=== PATIENT | female | born 1955 | race Caucasian/White ===

== ENCOUNTER 2016-09-18 13:10 | Emergency (ER) | payer OTHER, MEDICARE ==
[2016-09-18 13:18] VITALS: TEMP 97.5; O2SAT 90
--- NOTE | 2016-09-18 13:26 | EDPHY ---
H & P Stated Complaint: Slipped on Ice x3. Bruising to left eye. sent by Time Seen by Provider: 09/18/16 13:21 HPI/ROS: CHIEF COMPLAINT: Fall on ice yesterday, facial trauma, left hand trauma HISTORY OF PRESENT ILLNESS: The patient presents to the emergency department for warrant evaluation of a fall on ice yesterday. She struck herself on her face above her left eye and has marked swelling and ecchymosis noted to her forehead and scalp today. The patient reports a moderate headache. She denies acute neck pain but does suffer from chronic neck pain which is not acutely worsened from her fall. She denies acute numbness or weakness. The patient also complains of pain, swelling and slight deformity to her left 5th finger. The patient is on a number of narcotic pain medications for chronic pain. The patient denies abdominal pain, chest pain, acute back pain, numbness, weakness or additional acute complaints. REVIEW OF SYSTEMS: A comprehensive 10 point review of systems is otherwise negative aside from elements mentioned in the history of present illness. Source: Patient Exam Limitations: No limitations - Personal History Current Tetanus Diphtheria and Acellular Pertussis (TDAP): Yes Tetanus Vaccine Date: WITHIN 10 Y - Medical/Surgical History Hx Asthma: No Hx Chronic Respiratory Disease: No Hx Diabetes: No Hx Cardiac Disease: No Hx Renal Disease: No Hx Cirrhosis: No Hx Alcoholism: No Hx HIV/AIDS: No Hx Splenectomy or Spleen Trauma: No Other PMH: RA, Osteoarthritis,. Sjogen's, osteoporosis - Social History Smoking Status: Former smoker - Physical Exam Exam: General Appearance: Alert, no distress Head: Large ecchymotic contusion with soft tissue swelling over left eye Eyes: Pupils equal, round, reactive ENT, Mouth: No hemotympanum, no oral trauma Neck: Nontender, trachea midline Respiratory: No chest wall tender, subcutaneous air, lungs clear bilaterally Cardiovascular: Regular rate and rhythm Abdomen: Abdomen is soft and nontender, pelvis stable Skin: No lacerations, No abrasion Back: No midline T/L/S pain Extremities: Tenderness and bruising noted to the left 5th finger Neurological: A&Ox3, normal motor function, normal sensory exam Constitutional: Initial Vital Signs Temperature (C) 36.4 C 09/18/16 13:14 Heart Rate 103 H 09/18/16 13:14 Blood Pressure 98/64 L 09/18/16 13:14 O2 Sat (%) 90 L 09/18/16 13:14 Allergies/Adverse Reactions: Penicillins Allergy (Severe, Verified 07/01/16 14:11) Anaphylaxis/TROUBLE BREATHING CATS Allergy (Severe, Uncoded 10/10/12 19:18) TROUBLE BREATHING DONNIE NUTS Allergy (Severe, Uncoded 10/10/12 19:18) TROUBLE BREATHING ENVIRONMENTAL Allergy (Uncoded 10/18/12 10:59) Other-Enter Comments Home Medications: Medication Instructions Recorded Gabapentin [Neurontin 300 MG (RX)] 900 mg PO TID 10/14/12 cycloSPORINE 0.05% [Restasis Opht 1 drop EACHEYE BID 10/14/12 Drops(RX)] Promethazine HCl [Phenergan 25mg 25 mg PO Q6 PRN 10/24/13 (RX)] valACYclovir [Valtrex (RX)] 1,000 mg PO DAILY 10/24/13 Esomeprazole Mag Trihydrate 40 mg PO DAILY 03/18/16 [Nexium] Oxycodone HCl [Oxycontin] 40 mg PO TID 03/18/16 Baclofen [Baclofen 10 mg (RX)] 10 mg PO Q8 PRN 03/19/16 Ketamine Nasal Spary 1 sprays EACHNARE DAILY 03/19/16 oxyCODONE IR [Oxycodone Ir (RX)] 10 - 20 mg PO Q4 PRN 03/19/16 Ibuprofen [Motrin (*)] 800 mg PO Q6-8PRN #30 tab 04/02/16 Medical Decision Making - Diagnostics Imaging: CT maxillofacial: Negative for acute fracture, soft tissue swelling noted. Images reported to me by Dr. Mark Venegas. Left hand x-ray: Negative for acute fracture. ED Course/Re-evaluation: The patient presents to the emergency department after mechanical fall. She has a fair amount of soft tissue swelling and bony tenderness over her left eye. CT scan of the maxillofacial bones demonstrated no evidence of an acute fracture. The patient had no complaints of a significant headache. She was noted to be neurologically intact. Additionally, the patient had bruising and swelling noted to her left 5th finger. X-rays of extremity demonstrate no evidence of an obvious fracture. The patient was observed in the emergency department. She remains with a benign abdominal examination, normal neurologic examination and no additional traumatic injury. The patient will be discharged home with customary head injury and musculoskeletal strain after instructions. Differential Diagnosis: Differential diagnosis considered includes intracranial hemorrhage, skull fracture, finger fracture, concussion, contusion Departure - Departure Disposition: Home, Routine, Self-Care Clinical Impression: Hematoma of face, Finger contusion Condition: Good Instructions: Hematoma (ED) Additional Instructions: 1. Ice area of swelling 2. Take Ibuprofen or Motrin 600 mg by mouth three times a day. 3. There is no fracture seen on your CT for scan or x-ray today. Referrals: Brandi Adams MD [Primary Care Provider] - As per Instructions
--- NOTE | 2016-09-18 14:06 | DX ---
Left hand - 3 views dated September 18, 2016 Indication: Trauma. 5th digit pain. Comparison: Left hand series dated December 14, 2009 Findings: The demineralized bones are anatomically aligned. No acute fracture. Joint spaces are pre served. Minimal osteoarthritis of the interphalangeal joints and deformity of the base of the first m etacarpal is unchanged. Impression: Negative. No acute fracture.
[2016-09-18 14:33] VITALS: BP 101/60; PULSE 92; RESP 20
--- NOTE | 2016-09-18 14:34 | CT ---
CT of the Maxillofacial (Without Contrast) Clinical Indications: Trauma. Technique: 1.5 mm contiguous helical axial scanning through the face without contrast. Radiation dose reduction technique was utilized. Comparison: CT head July 01, 2016, CT maxillofacial March 19, 2016. Findings: Inferior maxillary sinus disease is unstable. Surgical changes related to prior dental work with bony reactive changes are also stable. There is no evidence of fracture. Mild sphenoid sinus di sease is present. A large amount of swelling is present over the left orbit and lateral face. Frontal sinuses and ethmoid sinuses are clear. Mastoid air cells are normal. Impression: 1. Soft tissue swelling over the left orbit and lateral face. No evidence of fracture. 2. Unchanged maxillary sinus disease and prior maxillary dental work. Critical results were relayed by Dr. Venegas to Dr. iDamond at 1413 hours on September 18, 2016.
== END 2016-09-18 14:33 | disposition home or self-care (01) ==
DX: S09.93XA Unspecified injury of face, initial encounter (principal); S00.83XA Contusion of other part of head, initial encounter; S60.052A Contusion of left little finger without damage to nail, initial encounter; Z87.891 Personal history of nicotine dependence; W18.09XA Striking against other object with subsequent fall, initial encounter

== ENCOUNTER 2017-01-02 17:56 | Emergency (ER) | payer OTHER, MEDICARE ==
[2017-01-02 18:20] VITALS: TEMP 98.1
--- NOTE | 2017-01-02 20:01 | EDPHY ---
H & P Stated Complaint: Right hill pain and edema from fall. HPI/ROS: Chief complaint: Right hand injury History of present illness: This is a pleasant 61-year-old female who presents to the emergency department for a right hand injury. Earlier today she tripped over her dog while walking and landed onto her right hand. Since then she has had pain and swelling to the inner aspect of the hand. It does make it difficult to move the digits of the hand, specifically the fourth and fifth finger. She denies other associated signs or symptoms including no report of open wounds. No report of paresthesias or abnormal coolness in the finger. She denies trauma to other parts of the body. - Personal History Current Tetanus/Diphtheria Vaccine: Yes Current Tetanus Diphtheria and Acellular Pertussis (TDAP): Yes Tetanus Vaccine Date: WITHIN 10 Y - Medical/Surgical History Hx Asthma: No Hx Chronic Respiratory Disease: No Hx Diabetes: No Hx Cardiac Disease: No Hx Renal Disease: No Hx Cirrhosis: No Hx Alcoholism: No Hx HIV/AIDS: No Hx Splenectomy or Spleen Trauma: No Other PMH: RA, Osteoarthritis,. Sjogen's, osteoporosis - Social History Smoking Status: Former smoker - Physical Exam Exam: General: Alert, nontoxic Skin: Contusion to the medial aspect of the right hand. No open wounds. Musculoskeletal: Tenderness to the medial aspect of the hand. The rest of the hand as well as the wrist including over the snuffbox is nontender. She is moving all digits in the right hand well although there is some pain moving the 4th and 5th finger. She is moving the wrist well. Vascular: Radial pulses 2+. Capillary refill brisk in the right hand. Neurologic: Sensation intact in the right hand. Constitutional: Initial Vital Signs Temperature (C) 36.7 C 01/02/17 18:16 Heart Rate 115 H 01/02/17 18:16 Blood Pressure 109/92 H 01/02/17 18:16 O2 Sat (%) 87 L 01/02/17 18:16 O2 Delivery Mode Room Air Allergies/Adverse Reactions: Penicillins Allergy (Severe, Verified 07/01/16 14:11) Anaphylaxis/TROUBLE BREATHING CATS Allergy (Severe, Uncoded 10/10/12 19:18) TROUBLE BREATHING DONNIE NUTS Allergy (Severe, Uncoded 10/10/12 19:18) TROUBLE BREATHING ENVIRONMENTAL Allergy (Uncoded 10/18/12 10:59) Other-Enter Comments Home Medications: Medication Instructions Recorded Gabapentin [Neurontin 300 MG (RX)] 900 mg PO TID 10/14/12 cycloSPORINE 0.05% [Restasis Opht 1 drop EACHEYE BID 10/14/12 Drops(RX)] Promethazine HCl [Phenergan 25mg 25 mg PO Q6 PRN 10/24/13 (RX)] valACYclovir [Valtrex (RX)] 1,000 mg PO DAILY 10/24/13 Esomeprazole Mag Trihydrate 40 mg PO DAILY 03/18/16 [Nexium] oxyCODONE HCL [Oxycontin] 40 mg PO TID 03/18/16 Baclofen [Baclofen 10 mg (RX)] 10 mg PO Q8 PRN 03/19/16 Ketamine Nasal Spary 1 sprays EACHNARE DAILY 03/19/16 oxyCODONE IR [Oxycodone Ir (RX)] 10 - 20 mg PO Q4 PRN 03/19/16 Ibuprofen [Motrin (*)] 800 mg PO Q6-8PRN #30 tab 04/02/16 Medical Decision Making - Diagnostics Imaging Results: Imaging Impressions Hand X-Ray 01/02/17 18:42 Impression: Acute fracture of the right 5th metacarpal neck, without significant displacement. Imaging: I viewed and interpreted images myself Procedures: Procedure: Splint placement. A ulnar gutter splint was applied. After application of the splint I returned and re-examined the patient. The splint was adequately immobilizing the joint and distal to the splint the patient's circulation and sensation was intact. ED Course/Re-evaluation: Patient seen under the supervision of my primary supervising physician Dr. Marci Islas. Patient presents to the emergency department for a right hand injury. The hand is neurovascularly intact. X-ray confirms a boxer's fracture. By history and physical exam no evidence of trauma to other parts of the body. Patient is splinted. She is discharged home. Home care is discussed. She is asked to follow up with a hand surgeon for recheck next week and referral information is provided. Return precautions are given. Patient voiced understanding and agreement with plan. Differential Diagnosis: Included but not limited to contusion, sprain or strain, bony fracture, joint dislocation Departure - Departure Disposition: Home, Routine, Self-Care Clinical Impression: Closed fracture of 5th metacarpal Qualifiers: Encounter type: initial encounter Metacarpal location: shaft Fracture alignment : nondisplaced Laterality: right Qualified Code(s): S62.356A - Nondisplaced fracture of shaft of fifth metacarpal bone, right hand, initial encounter for closed fracture Condition: Good Instructions: Hand Fracture (ED) Additional Instructions: Follow-up with Hand surgery next week for continued evaluation and care Use [id number] ibuprofen as directed as needed for pain If symptoms worsen or new symptoms develop return to the emergency room for recheck Referrals: Brandi Adams MD [Primary Care Provider] - As per Instructions Hollie Angela MD [Medical Doctor] - As per Instructions
[2017-01-02 20:10] VITALS: BP 119/88; PULSE 104; RESP 16; O2SAT 91
== END 2017-01-02 20:09 | disposition home or self-care (01) ==
DX: S62.366A Nondisplaced fracture of neck of fifth metacarpal bone, right hand, initial encounter for closed fracture (principal); Z87.891 Personal history of nicotine dependence; W01.0XXA Fall on same level from slipping, tripping and stumbling without subsequent striking against object, initial encounter; Y93.01 Activity, walking, marching and hiking

== ENCOUNTER → 2017-02-11 | Outpatient (CLI) | payer OTHER, MEDICARE | LOC: BMCIMAGING 13:35 | PROVIDERS: ATTEND Physician Assistant | DX: S62.366G Nondisplaced fracture of neck of fifth metacarpal bone, right hand, subsequent encounter for fracture with delayed healing (principal) ==

== ENCOUNTER → 2017-02-12 | Outpatient (CLI) | payer OTHER, MEDICARE | LOC: BMCIMAGING 13:45 | PROVIDERS: ATTEND Family Medicine | DX: M79.89 Other specified soft tissue disorders (principal) ==

== ENCOUNTER → 2017-02-27 | Outpatient (CLI) | payer OTHER, MEDICARE | LOC: BMCIMAGING 13:32 | PROVIDERS: ATTEND Physician Assistant | DX: S62.366D Nondisplaced fracture of neck of fifth metacarpal bone, right hand, subsequent encounter for fracture with routine healing (principal) ==

== ENCOUNTER → 2017-03-13 | Outpatient (CLI) | payer OTHER, MEDICARE | LOC: BMCIMAGING 14:17 | PROVIDERS: ATTEND Family Medicine | DX: S62.347A Nondisplaced fracture of base of fifth metacarpal bone, left hand, initial encounter for closed fracture (principal) ==

== ENCOUNTER → 2017-03-20 | Outpatient (CLI) | payer OTHER, MEDICARE | LOC: FIMAGING 10:49 | PROVIDERS: ATTEND Physician Assistant Surgical | DX: J32.0 Chronic maxillary sinusitis (principal) ==

== ENCOUNTER → 2017-06-24 | Outpatient (CLI) | payer OTHER, MEDICARE | LOC: BMCIMAGING 14:18 | PROVIDERS: ATTEND Physician Assistant | DX: M25.561 Pain in right knee (principal); M25.562 Pain in left knee ==

== ENCOUNTER 2017-07-13 13:53 | Outpatient (CLI) | payer OTHER, MEDICARE ==
[2017-07-13] MEDS ORDERED: NALOXONE HCL 0.4 MG/ML INJ IVP PRN (14:02)
[2017-07-13] MEDS ORDERED: MEPERIDINE 25 MG/ML SYR IVP PRN (14:02)
[2017-07-13] MEDS ORDERED: FLUMAZENIL 0.5 MG/5 ML MDV IVP PRN (14:02)
[2017-07-13] MEDS ORDERED: NS 1,000 ML IV SCH (14:15)
[2017-07-13 14:41] VITALS: PULSE 88; TEMP 98.2
--- NOTE | 2017-07-13 15:01 | PDPROPOC ---
Sedation Plan of Care Sedation Plan of Care: vital signs stable, mental status noted, patient educated of risks, benefits, alternatives, patient can tolerate sedation ASA Classification: ASA 1 Planned drugs: fentanyl, midazolam Mallampati Score: Class 1 Mallampati Reference Image: Patient passed 3-3-2 rule?: Yes
--- NOTE | 2017-07-13 15:01 | PDGENHP ---
History & Physical Chief Complaint: claustrophobia History of Present Illness: cervical spine disease Cardiorespiratory Assessment: lungs clear, heart RRR
--- NOTE | 2017-07-13 15:01 | PDGENHP ---
History & Physical Chief Complaint: claustrophobia History of Present Illness: cervical spine disease Cardiorespiratory Assessment: lungs clear, heart RRR
--- NOTE | 2017-07-13 15:01 | PDGENHP ---
History & Physical Chief Complaint: claustrophobia History of Present Illness: cervical spine disease Cardiorespiratory Assessment: lungs clear, heart RRR
[2017-07-13] MEDS ORDERED: FLUMAZENIL 0.5 MG/5 ML MDV IVP ONE (15:06)
[2017-07-13] MEDS ORDERED: NALOXONE HCL 0.4 MG/ML INJ ONE (15:06)
[2017-07-13] MEDS ORDERED: MIDAZOLAM 2 MG/2 ML VIAL ONE (15:07)
[2017-07-13] MEDS ORDERED: fentaNYL 100 MCG/2 ML INJ ONE (15:07)
[2017-07-13] MEDS: MIDAZOLAM 2 MG/2 ML VIAL IVP PRN ×4 (15:16→16:35)
[2017-07-13] MEDS: fentaNYL 100 MCG/2 ML INJ IVP PRN ×4 (15:17→16:34)
--- NOTE | 2017-07-13 16:39 | PDRADPN ---
Radiology Procedure Note Date of Procedure: 07/13/17 Radiologist: Alec Gaytan Anesthesia: IV Sedation Pre-op Diagnosis: claustrophobia Post-op Diagnosis: same Indication: cervical pain Procedure: MRI with cons sedation Finding(s): see dictation Inf/Abcess present in the surg proc area at time of surgery?: No EBL: none Complications: none
[2017-07-13 18:12] VITALS: BP 115/78; RESP 16; O2SAT 88
== END 2017-07-13 17:59 | disposition home or self-care (01) ==
LOC: FIMAGING 13:53
PROVIDERS: ATTEND Physical Medicine & Rehabilitation
DX: M48.02 Spinal stenosis, cervical region (principal); M50.322 Other cervical disc degeneration at C5-C6 level; M50.221 Other cervical disc displacement at C4-C5 level
CPT/HCPCS: 72141; J2250; J3010; J2310

== ENCOUNTER 2017-07-27 17:12 | Emergency (ER) | payer OTHER, MEDICARE ==
[2017-07-27 17:18] VITALS: TEMP 98.6
--- NOTE | 2017-07-27 18:52 | EDPHY ---
H & P Stated Complaint: "Flare up of my RA" Hurts all over Time Seen by Provider: 07/27/17 18:34 HPI/ROS: CHIEF COMPLAINT: Body aches HISTORY OF PRESENT ILLNESS: The patient is a 61 y/o female with a history of rheumatoid arthritis, complaining of body aches for 2 days. For the past month her RA has progressively worsened, so she saw her engagement liaison, Dr. Carrion. She placed her on Prednisone. On Thursday, 2 days ago, her body pain significantly worsened. She notes that her joints, primarily in her neck, knees, and toes are having the most pain. She reports some shortness of breath which she attributes to pain in the posterior chest. Denies recent trauma. No fever, chills, palpitations, vomiting, diarrhea, urinary complaints, headache, lightheadedness. REVIEW OF SYSTEMS: Aside from elements discussed in the HPI, a comprehensive 10-point review of systems was reviewed and is negative. PAST MEDICAL HISTORY: Rheumatoid arthritis, osteoarthritis, Sjogen's, osteoporosis SOCIAL HISTORY: Lives in [place], no tobacco use VITAL SIGNS: BP: 160/101, others reviewed by me GENERAL: Tearful, twitchy, anxious, jerking of all extremities. When questioned , patient states that she is just in pain and nervous about someone touching her. HEENT: Atraumatic. Eyes: No icterus, no injection. Mouth: Slightly dry mucous membranes. No erythema or lesions. Neck: Very limited range of motion at the neck. Patient reports significant pain and stiffness in her neck. LUNGS: Occasional rhonchi at the left base, no wheezes or rales. CARDIAC: Regular rate and rhythm, no rubs, murmurs or gallops. ABDOMEN: Soft, nontender, nondistended, bowel sounds normal. BACK: Stiff upper back and pain with movements and breathing, tenderness along spine and lateral ribs. EXTREMITIES: Right hand edema and erythema across MCP joints. Edema on dorsal aspect of left foot, erythema at 3rd and 4th MTP joints, edema on balls of feet. No trauma. NEURO: Alert and oriented, grossly nonfocal. SKIN: Warm and dry, no rash. PSYCHIATRIC: Normal mentation, no agitation. Portions of this note were transcribed by a certified medical transcriptionist. I personally performed a history, physical exam, medical decision making, and confirmed accuracy of information the transcribed note. - Personal History Current Tetanus Diphtheria and Acellular Pertussis (TDAP): Yes Tetanus Vaccine Date: WITHIN 10 Y - Medical/Surgical History Hx Asthma: No Hx Chronic Respiratory Disease: No Hx Diabetes: No Hx Cardiac Disease: No Hx Renal Disease: No Hx Cirrhosis: No Hx Alcoholism: No Hx HIV/AIDS: No Hx Splenectomy or Spleen Trauma: No Other PMH: RA, Osteoarthritis,. Sjogen's, osteoporosis - Social History Smoking Status: Former smoker Constitutional: Initial Vital Signs Temperature (C) 37 C 07/27/17 17:14 Heart Rate 98 07/27/17 17:14 Respiratory Rate 20 07/27/17 17:14 Blood Pressure 160/101 H 07/27/17 17:14 O2 Sat (%) 95 07/27/17 17:14 O2 Delivery Mode Nasal Cannula O2 (L/minute) 2 Allergies/Adverse Reactions: Penicillins Allergy (Severe, Verified 07/27/17 17:13) Anaphylaxis/TROUBLE BREATHING CATS Allergy (Severe, Uncoded 10/10/12 19:18) TROUBLE BREATHING DONNIE NUTS Allergy (Severe, Uncoded 10/10/12 19:18) TROUBLE BREATHING ENVIRONMENTAL Allergy (Uncoded 10/18/12 10:59) Other-Enter Comments Home Medications: Medication Instructions Recorded Gabapentin [Neurontin 300 MG (RX)] 900 mg PO TID 10/14/12 cycloSPORINE 0.05% [Restasis Opht 1 drop EACHEYE BID 10/14/12 Drops(RX)] valACYclovir [Valtrex (RX)] 1,000 mg PO DAILY 10/24/13 oxyCODONE HCL [Oxycontin] 40 mg PO TID 03/18/16 Baclofen [Baclofen 10 mg (RX)] 10 mg PO Q8 PRN 03/19/16 oxyCODONE IR [Oxycodone Ir (RX)] 10 - 20 mg PO Q4 PRN 03/19/16 Nortriptyline HCl 06/26/17 Abatacept [Orencia Clickject] 07/27/17 Hydrocodone/APAP 5/325 [[place] 1 tab PO Q6H PRN #10 tab 07/27/17 5/325 (RX)] predniSONE [prednisone 10mg (RX)] 40 mg PO DAILY 3 Days tab 07/27/17 Medical Decision Making - Diagnostics EKG Interpretation: 12-LEAD EKG: Please see the full report in [facility]. My interpretation: Sinus tachycardia with a rate of 100 12-LEAD EKG: Please see the full report in [facility]. My interpretation: Sinus tachycardia with a rate of 148 and incomplete RBBB and LAFB Imaging Results: Imaging Impressions Chest X-Ray 07/27/17 19:03 Impression: Chest negative for acute abnormality with possible mild airways disease noted. Chest/Thorax CTA 07/27/17 20:32 Impression: 1. No evidence of pulmonary embolic disease. 2. Dependent atelectasis and bilateral pleural effusions, right greater than left. 3. Coronary arterial calcifications. 4. See above report for additional findings. Results called and discussed with Princess Bradshaw MD on 07/27/2017 at 21:53 Imaging: Discussed imaging studies w/ yardage caller Radiologist, I viewed and interpreted images myself ED Course/Re-evaluation: The patient is a 61 y/o female with a history of arthritis presenting with body pain that worsened 2 days ago. On exam she has a stiff upper back and neck reports hurts all over. She has increased pain with movement. She also has right hand edema and erythema across her MCP joints. As well as edema on the dorsal aspect of her left foot, erythema at the 3rd and 4th MTP joints, and edema on balls of feet. She is also tearful and very twitchy. 1999: Patient's nurse informed me that the patient's heart rate is having large fluctuations, between 100-140. 1999: EKG interpreted as sinus tachycardia. 2007: Repeat EKG demonstrates sinus tachycardia with sinus tachycardia with incomplete RBBB and LAFB. Patient is observed on the monitor to have heart rate fluctuations between 100- 140. Always noted to be sinus. 2036: Reassessed patient and discussed labs and x-ray. She is still in pain after 125mg IV Solu-Medrol and 1mg IV Dilaudid. 1mg IV Ativan and 1mg IV Dilaudid administered. I have also discussed doing a chest CT; she is comfortable with this plan. 2154: Spoke with radiologist, he reports the patients chest CT shows atelectasis at the bases, small pulmonary effusions, but no pulmonary embolism. 2199: Reassessed patient. The she is sedated from her medication but the nursing staff reports that she had been feeling better after returning from CT scan. 2252: Reassessed patient, she is still somnolent for her medications. Care was assumed by Dr. Carlie Flores pending clearance of her medications. Of note, she was slightly hypoxemic after receiving her medications and this will need to be checked before discharge. Differential Diagnosis: Differential diagnoses for the patient's symptom complex was considered including but not limited to rheumatoid flare, medication effect, drug-seeking behavior, dehydration, anxiety, cardiac causes, pulmonary embolism. - Data Points Laboratory Results: Laboratory Results 07/27/17 19:10 07/27/17 19:10 07/27/17 07/27/17 07/27/17 19:45 19:30 19:10 WBC RBC Hgb Hct MCV MCH MCHC RDW Plt Count MPV Neut % (Auto) Lymph % (Auto) Gordon % (Auto) Eos % (Auto) Baso % (Auto) Nucleat RBC Rel Count Absolute Neuts (auto) Absolute Lymphs (auto) Absolute Monos (auto) Absolute Eos (auto) Absolute Basos (auto) Absolute Nucleated RBC Immature Gran % Immature Gran # D-Dimer 2.19 ug/mLFEU H ug/mLFEU (0.00-0.50) Sodium 131 mEq/L L mEq/L (134-144) Potassium 4.7 mEq/L mEq/L (3.5-5.2) Chloride 90 mEq/L L mEq/L (97-110) Carbon Dioxide 30 mEq/l mEq/l (22-31) Anion Gap 11 mEq/L mEq/L (8-16) BUN 19 mg/dL mg/dL (7-23) Creatinine 1.0 mg/dL mg/dL (0.6-1.0) Estimated GFR 57 Glucose 108 mg/dL H mg/dL (70-100) Calcium 8.6 mg/dL mg/dL (8.5-10.4) Troponin I < 0.012 ng/mL ng/mL (0.000-0.034) NT-Pro-B Natriuret Pep 333 pg/mL H pg/mL (0-125) 07/27/17 19:10 WBC 13.66 10^3/uL H 10^3/uL (3.80-9.50) RBC 4.39 10^6/uL 10^6/uL (4.18-5.33) Hgb 14.6 g/dL g/dL (12.6-16.3) Hct 43.0 % % (38.0-47.0) MCV 97.9 fL fL (81.5-99.8) MCH 33.3 pg pg (27.9-34.1) MCHC 34.0 g/dL g/dL (32.4-36.7) RDW 14.8 % % (11.5-15.2) Plt Count 325 10^3/uL 10^3/uL (150-400) MPV 8.7 fL fL (8.7-11.7) Neut % (Auto) 79.1 % H % (39.3-74.2) Lymph % (Auto) 10.8 % L % (15.0-45.0) Gordon % (Auto) 9.2 % % (4.5-13.0) Eos % (Auto) 0.4 % L % (0.6-7.6) Baso % (Auto) 0.1 % L % (0.3-1.7) Nucleat RBC Rel Count 0.0 % % (0.0-0.2) Absolute Neuts (auto) 10.81 10^3/uL H 10^3/uL (1.70-6.50) Absolute Lymphs (auto) 1.48 10^3/uL 10^3/uL (1.00-3.00) Absolute Monos (auto) 1.25 10^3/uL H 10^3/uL (0.30-0.80) Absolute Eos (auto) 0.05 10^3/uL 10^3/uL (0.03-0.40) Absolute Basos (auto) 0.02 10^3/uL 10^3/uL (0.02-0.10) Absolute Nucleated RBC 0.00 10^3/uL 10^3/uL (0-0.01) Immature Gran % 0.4 % % (0.0-1.1) Immature Gran # 0.05 10^3/uL 10^3/uL (0.00-0.10) D-Dimer Sodium Potassium Chloride Carbon Dioxide Anion Gap BUN Creatinine Estimated GFR Glucose Calcium Troponin I NT-Pro-B Natriuret Pep Medications Given: Discontinued Medications Hydromorphone HCl (Dilaudid) 1 mg IVP EDNOW ONE Stop: 07/27/17 19:05 Last Admin: 07/27/17 19:15 Dose: 1 mg Hydromorphone HCl (Dilaudid) 1 mg IVP EDNOW ONE Stop: 07/27/17 20:34 Last Admin: 07/27/17 20:37 Dose: 1 mg Sodium Chloride (Ns) 1,000 mls @ 0 mls/hr IV ONCE ONE; Wide Open PRN Reason: Protocol Stop: 07/27/17 19:04 Last Admin: 07/27/17 19:17 Dose: 1,000 mls Sodium Chloride (Ns) 1,000 mls @ 0 mls/hr IV ONCE ONE; Wide Open PRN Reason: Protocol Stop: 07/27/17 20:34 Last Admin: 07/27/17 20:37 Dose: 1,000 mls Lorazepam (Ativan Injection) 1 mg IVP EDNOW ONE Stop: 07/27/17 20:39 Last Admin: 07/27/17 20:43 Dose: 1 mg Methylprednisolone Sodium Succinate (Solu-Medrol) 125 mg IVP EDNOW ONE Stop: 07/27/17 19:04 Last Admin: 07/27/17 19:16 Dose: 125 mg Departure - Departure Disposition: Home, Routine, Self-Care Clinical Impression: Rheumatoid arthritis flare, Generalized body pain Condition: Good Instructions: Prednisone (By mouth), Rheumatoid Arthritis (ED), Tachycardia ( ED) Additional Instructions: Take your Prednisone as instructed. You may use hydrocodone as needed for ongoing recurring pain. Follow up with your PCP and engagement liaison in the next week. Your heart rate was quite elevated at times and the rate seem to fluctuate wildly. Please follow up with her primary care physician regarding further cardiac evaluation. Return to the Emergency Department if you experience chest pain, shortness of breath, fevers, weakness, numbness or other worsening of your symptoms. Referrals: Carlie Carrion MD [Medical Doctor] - As per Instructions Prescriptions: Hydrocodone/APAP 5/325 [[place] 5/325 (RX)] 1 tab PO Q6H PRN #10 tab PRN Reason: Pain predniSONE [prednisone 10mg (RX)] 40 mg PO DAILY 3 Days tab Report Scribed for: Princess Bradshaw Report Scribed by: Shruthi Melgar Date of Report: 07/27/17 Time of Report: 18:51
[2017-07-27] MEDS ORDERED: NS 1,000 ML IV ONE ×2 (19:03→20:33)
[2017-07-27] MEDS ORDERED: methylPREDNISolone SOD SUCC 125 MG/2 ML VIAL IVP ONE (19:03)
[2017-07-27] MEDS ORDERED: HYDROmorphONE/DILAUDID 1 MG/ML INJ IVP ONE ×2 (19:04→20:33)
[2017-07-27 19:18] LABS: % IMMATURE GRANULYOCYTES 0.4 % (0.0-1.1); ABSOLUTE IMMATURE GRANULOCYTES 0.05 10^3/uL (0.00-0.10); ADD DIFF? NO; ADD MORPH? NO; ADD SCAN? NO; ATYPICAL LYMPHOCYTE FLAG 0 (0-99); FRAGMENT RBC FLAG 0 (0-99); HEMOGLOBIN 14.6 g/dL (12.6-16.3); LEFT SHIFT FLG 10 (0-99); LIPEMIA HEMOLYSIS FLAG 90 (0-99); MEAN CELL HEMOGLOBIN 33.3 pg (27.9-34.1); MEAN CELL VOLUME 97.9 fL (81.5-99.8); MEAN PLATELET VOLUME 8.7 fL (8.7-11.7); PLATELET CLUMPS FLAG 0 (0-99); PLATELET COUNT 325 10^3/uL (150-400); RED BLOOD CELL COUNT 4.39 10^6/uL (4.18-5.33); RED CELL DISTRIBUTION WIDTH 14.8 % (11.5-15.2)
[2017-07-27] MEDS ORDERED: HYDROmorphONE/DILAUDID 1 MG/ML INJ ONE (19:20)
[2017-07-27 19:33] LABS: ANION GAP 11 mEq/L (8-16); CALCIUM 8.6 mg/dL (8.5-10.4); CARBON DIOXIDE 30 mEq/l (22-31); CHLORIDE 90 mEq/L (97-110); GLOMERULAR FILTRATION RATE 57; GLUCOSE 108 mg/dL (70-100); POTASSIUM 4.7 mEq/L (3.5-5.2); SODIUM 131 mEq/L (134-144)
--- NOTE | 2017-07-27 19:59 | CPEKG ---
Heart Rate: 100 RR Interval: 600 P-R Interval: 180 QRSD Interval: 120 QT Interval: 356 QTC Interval: 460 P Vina: 44 QRS Vina: -35 T Wave Vina: 58 EKG Severity - ABNORMAL ECG - EKG Impression: SINUS TACHYCARDIA EKG Impression: PROBABLE LEFT ATRIAL ABNORMALITY EKG Impression: NONSPECIFIC INTRAVENTRICULAR CONDUCTION DELAY EKG Impression: LEFT VENTRICULAR HYPERTROPHY Electronically Signed By: Princess Bradshaw 27-Jul-2017 23:12:47
--- NOTE | 2017-07-27 20:10 | CPEKG ---
Heart Rate: 148 RR Interval: 405 P-R Interval: 103 QRSD Interval: 112 QT Interval: 324 QTC Interval: 509 P Rienzi: 0 QRS Rienzi: -40 T Wave Rienzi: 48 EKG Severity - ABNORMAL ECG - EKG Impression: SINUS TACHYCARDIA EKG Impression: INCOMPLETE RBBB AND LAFB Electronically Signed By: Princess Bradshaw 27-Jul-2017 23:12:39
[2017-07-27 20:25] LABS: TROPONIN I < 0.012 ng/mL (0.000-0.034)
[2017-07-27] MEDS ORDERED: LORazepam 2 MG/ML INJ IVP ONE (20:38)
[2017-07-27] MEDS ORDERED: IOPAMIDOL (ISOVUE 370) 100 ML BTL IV ONE (20:38)
[2017-07-27] MEDS ORDERED: HYDROCOD/APAP 5/325 PREPACK#6 BTL TAKEHOME ONE (22:59)
[2017-07-28 01:05] VITALS: BP 102/73; PULSE 74; RESP 16; O2SAT 93
== END 2017-07-28 01:04 | disposition home or self-care (01) ==
DX: M79.1 Myalgia (principal); M06.9 Rheumatoid arthritis, unspecified; E86.9 Volume depletion, unspecified; Z87.891 Personal history of nicotine dependence
CPT/HCPCS: 71020; 71275; 93005; 96361; 96374; 96375; 96376; 99285; J1170; J2060; J2930; Q9967

== ENCOUNTER 2017-08-05 10:09 | Emergency (ER) | payer OTHER, MEDICARE ==
[2017-08-05] MEDS ORDERED: HYDROmorphONE/DILAUDID 1 MG/ML INJ IVP ONE ×2 (10:29→12:32)
[2017-08-05] MEDS ORDERED: HALOPERIDOL LACT 5 MG/ML INJ IVP ONE (10:29)
[2017-08-05] MEDS ORDERED: KETAMINE 100 MG/10 ML SYR IVP ONE (10:29)
--- NOTE | 2017-08-05 10:30 | EDPHY ---
H & P Time Seen by Provider: 08/05/17 10:15 HPI/ROS: CHIEF COMPLAINT: Pain all over HISTORY OF PRESENT ILLNESS: Patient has history of rheumatoid arthritis complains of pain all over which she says is worse and not controlled by her home pain medications. She says includes her right shoulder as well as both hands and her right foot and ankle. She says the pain is typical of her rheumatoid arthritis flares and is not associated with any recent injury or trauma or fever or chills. Symptoms are severe and worse with movement. Present for at least the last 48- 72 hours. REVIEW OF SYSTEMS: Eye: no change in vision ENT: no sore throat Cardiac: no chest pain or syncope Pulmonary: no cough or SOB, specifically denies any respiratory complaints. Abdomen: no vomiting, diarrhea, abdominal pain Musculoskeletal: HPI Skin: no rash Neuro: no headache Constitutional: no fever : no urinary symptoms A comprehensive 10 point review of systems is otherwise negative aside from elements mentioned in the history of present illness. PAST MEDICAL HISTORY: Rheumatoid arthritis, Sjogren's, osteoporosis. Social history: Former smoker General Appearance: Alert and conversant, cooperative. Eyes: No scleral icterus. ENT, Mouth: Normal mucous membranes. Respiratory: Normal respiratory effort, breath sounds equal, lungs are clear to auscultation. Cardiovascular: Regular rate and rhythm. Gastrointestinal: Abdomen is soft and non tender. Neurological: Alert and oriented x3. Normally conversant. Face symmetric, normal movement and sensation in all extremities. Skin: Warm and dry, no rashes. Musculoskeletal: Patient has some swelling in the joints of her hands. She has some swelling in the MTP region of her right foot. She has hyperesthetic to touch but I can range both shoulders elbows wrists, hips knees ankles and her toes and fingers. She does not appear to have septic joint in any location. Psychiatric: Anxious, restless. Emergency Department course/MDM: Ketamine 20 mg IV, Dilaudid 0.5 mg IV, Haldol 2.5 mg IV. 1127: Re-evaluated, more comfortable. 1130: Discussed with Dr. Murali Ferrari's academic affairs assistant. Both aquatics assistant department head or out of the office. 1230: Patient given oral steroids and additional 0.5 mg IV Dilaudid. Prednisone taper. Patient feels better after this and wants to be discharged which I think is reasonable. 94% on room air discharge. Smoking Status: Former smoker Constitutional: Initial Vital Signs Temperature (C) 37.2 C 08/05/17 10:09 Heart Rate 81 08/05/17 10:09 Respiratory Rate 16 08/05/17 10:09 Blood Pressure 106/63 08/05/17 10:09 O2 Sat (%) 89 L 08/05/17 10:09 O2 Delivery Mode Room Air O2 (L/minute) 4 Allergies/Adverse Reactions: Penicillins Allergy (Severe, Verified 07/27/17 17:13) Anaphylaxis/TROUBLE BREATHING CATS Allergy (Severe, Uncoded 10/10/12 19:18) TROUBLE BREATHING DONNIE NUTS Allergy (Severe, Uncoded 10/10/12 19:18) TROUBLE BREATHING ENVIRONMENTAL Allergy (Uncoded 10/18/12 10:59) Other-Enter Comments Home Medications: Medication Instructions Recorded Gabapentin [Neurontin 300 MG (RX)] 900 mg PO TID 10/14/12 cycloSPORINE 0.05% [Restasis Opht 1 drop EACHEYE BID 10/14/12 Drops(RX)] valACYclovir [Valtrex (RX)] 1,000 mg PO DAILY 10/24/13 oxyCODONE HCL [Oxycontin] 40 mg PO TID 03/18/16 Baclofen [Baclofen 10 mg (RX)] 10 mg PO Q8 PRN 03/19/16 oxyCODONE IR [Oxycodone Ir (RX)] 10 - 20 mg PO Q4 PRN 03/19/16 Nortriptyline HCl 06/26/17 Abatacept [Orencia Clickject] 07/27/17 Hydrocodone/APAP 5/325 [[place] 1 tab PO Q6H PRN #10 tab 07/27/17 5/325 (RX)] predniSONE [prednisone 10mg (RX)] 40 mg PO DAILY 3 Days tab 07/27/17 predniSONE 10 mg PO AD #15 tab 08/05/17 Medical Decision Making Differential Diagnosis: Differential considered including but not limited to septic joint, rheumatoid arthritis, fracture, cellulitis - Data Points Laboratory Results: Laboratory Results 08/05/17 10:20 08/05/17 10:20 08/05/17 08/05/17 10:20 10:20 WBC 8.48 10^3/uL 10^3/uL (3.80-9.50) RBC 3.92 10^6/uL L 10^6/uL (4.18-5.33) Hgb 13.0 g/dL g/dL (12.6-16.3) Hct 38.4 % % (38.0-47.0) MCV 98.0 fL fL (81.5-99.8) MCH 33.2 pg pg (27.9-34.1) MCHC 33.9 g/dL g/dL (32.4-36.7) RDW 14.6 % % (11.5-15.2) Plt Count 310 10^3/uL 10^3/uL (150-400) MPV 8.9 fL fL (8.7-11.7) Neut % (Auto) 72.8 % % (39.3-74.2) Lymph % (Auto) 14.7 % L % (15.0-45.0) [place] % (Auto) 11.3 % % (4.5-13.0) Eos % (Auto) 0.5 % L % (0.6-7.6) Baso % (Auto) 0.2 % L % (0.3-1.7) Nucleat RBC Rel Count 0.0 % % (0.0-0.2) Absolute Neuts (auto) 6.17 10^3/uL 10^3/uL (1.70-6.50) Absolute Lymphs (auto) 1.25 10^3/uL 10^3/uL (1.00-3.00) Absolute Monos (auto) 0.96 10^3/uL H 10^3/uL (0.30-0.80) Absolute Eos (auto) 0.04 10^3/uL 10^3/uL (0.03-0.40) Absolute Basos (auto) 0.02 10^3/uL 10^3/uL (0.02-0.10) Absolute Nucleated RBC 0.00 10^3/uL 10^3/uL (0-0.01) Immature Gran % 0.5 % % (0.0-1.1) Immature Gran # 0.04 10^3/uL 10^3/uL (0.00-0.10) Sodium 136 mEq/L mEq/L (134-144) Potassium 4.5 mEq/L mEq/L (3.5-5.2) Chloride 97 mEq/L mEq/L (97-110) Carbon Dioxide 26 mEq/l mEq/l (22-31) Anion Gap 13 mEq/L mEq/L (8-16) BUN 16 mg/dL mg/dL (7-23) Creatinine 0.7 mg/dL mg/dL (0.6-1.0) Estimated GFR > 60 Glucose 92 mg/dL mg/dL (70-100) Calcium 8.3 mg/dL L mg/dL (8.5-10.4) Medications Given: Discontinued Medications Haloperidol Lactate (Haldol Injection) 2.5 mg IVP EDNOW ONE Stop: 08/05/17 10:30 Last Admin: 08/05/17 10:46 Dose: 2.5 mg Hydromorphone HCl (Dilaudid) 0.5 mg IVP EDNOW ONE Stop: 08/05/17 10:30 Last Admin: 08/05/17 10:46 Dose: 0.5 mg Hydromorphone HCl (Dilaudid) 0.5 mg IVP EDNOW ONE Stop: 08/05/17 12:33 Last Admin: 08/05/17 12:45 Dose: 0.5 mg Ketamine HCl (Ketamine) 20 mg IVP EDNOW ONE Stop: 08/05/17 10:30 Last Admin: 08/05/17 10:46 Dose: 20 mg Prednisone (Prednisone) 60 mg PO EDNOW ONE Stop: 08/05/17 11:32 Last Admin: 08/05/17 12:44 Dose: 60 mg Departure - Departure Disposition: Home, Routine, Self-Care Clinical Impression: Rheumatoid arthritis Qualifiers: Rheumatoid arthritis location: unspecified site Rheumatoid factor presence: unspecified presence Qualified Code(s): M06.9 - Rheumatoid arthritis, unspecified Condition: Good Instructions: Prednisone (By mouth) Referrals: Carlie Carrion MD [Medical Doctor] - As per Instructions Prescriptions: predniSONE 10 mg PO AD #15 tab
[2017-08-05 10:33] LABS: % IMMATURE GRANULYOCYTES 0.5 % (0.0-1.1); ABSOLUTE IMMATURE GRANULOCYTES 0.04 10^3/uL (0.00-0.10); ADD DIFF? NO; ADD MORPH? NO; ADD SCAN? NO; ATYPICAL LYMPHOCYTE FLAG 10 (0-99); FRAGMENT RBC FLAG 0 (0-99); HEMATOCRIT 38.4 % (38.0-47.0); LEFT SHIFT FLG 10 (0-99); LIPEMIA HEMOLYSIS FLAG 90 (0-99); MEAN CELL HEMOGLOBIN 33.2 pg (27.9-34.1); MEAN CELL HEMOGLOBIN CONCENTR. 33.9 g/dL (32.4-36.7); MEAN PLATELET VOLUME 8.9 fL (8.7-11.7); PLATELET CLUMPS FLAG 0 (0-99); PLATELET COUNT 310 10^3/uL (150-400); RED BLOOD CELL COUNT 3.92 10^6/uL (4.18-5.33); RED CELL DISTRIBUTION WIDTH 14.6 % (11.5-15.2)
[2017-08-05 10:42] LABS: ANION GAP 13 mEq/L (8-16); CALCIUM 8.3 mg/dL (8.5-10.4); CARBON DIOXIDE 26 mEq/l (22-31); CHLORIDE 97 mEq/L (97-110); CREATININE 0.7 mg/dL (0.6-1.0); GLOMERULAR FILTRATION RATE > 60; GLUCOSE 92 mg/dL (70-100); POTASSIUM 4.5 mEq/L (3.5-5.2); SODIUM 136 mEq/L (134-144)
[2017-08-05] MEDS ORDERED: predniSONE 20 MG TAB PO ONE (11:31)
[2017-08-05 13:14] VITALS: BP 112/87; PULSE 97; RESP 18; TEMP 97.9; O2SAT 94
== END 2017-08-05 13:14 | disposition home or self-care (01) ==
LOC: EDUNIT#
DX: M06.9 Rheumatoid arthritis, unspecified (principal); Z87.891 Personal history of nicotine dependence
CPT/HCPCS: 96374; 96375; 96376; 99284; J1170

== ENCOUNTER 2017-10-08 22:39 | Emergency (ER) | payer OTHER, MEDICARE ==
[2017-10-08 22:47] VITALS: TEMP 98.1
[2017-10-08] MEDS ORDERED: LIDOCAINE 2% VISCOUS 15 ML UDCUP PO ONE (23:14)
[2017-10-08] MEDS ORDERED: MAG HYDROX/AL HYDROX/SIMETH 30 ML UDCUP PO ONE (23:14)
--- NOTE | 2017-10-08 23:17 | EDPHY ---
H & P Stated Complaint: sore throat/epigatric pain since tonight Time Seen by Provider: 10/08/17 23:04 HPI/ROS: HPI The patient presents with chest pain which began just prior to arrival. She was watching television when she developed a sore throat fairly suddenly. She went to the kitchen and tried to gargle salt water. This did not help her symptoms much. She then got into bed and felt that the pain in her throat, radiated down into her chest. The pain has continued in her chest, it is diffuse, burning in nature, does not radiate. It is not associated with any nausea, vomiting, dizziness, diaphoresis. She does have a history of GERD, however this does not feel like that. She had pineapple today, denies any alcohol use.. REVIEW OF SYSTEMS Constitutional: No fever, no chills. Eyes: No discharge. ENT: Positive for sore throat. Cardiovascular: Positive for chest pain, no palpitations. Respiratory: No cough, no shortness of breath. Gastrointestinal: No abdominal pain, no vomiting. Genitourinary: No hematuria. Musculoskeletal: No back pain. Skin: No rashes. Neurological: No headache. PMHx: History of rheumatoid arthritis Soc Hx: Alcohol use PHYSICAL General Appearance: Alert, no distress Eyes: Pupils equal and round no pallor or injection ENT, Mouth: Mucous membranes moist, posterior pharynx appears normal Respiratory: There are no retractions, lungs are clear to auscultation Cardiovascular: Regular rate and rhythm Gastrointestinal: Abdomen is soft and non-tender, no masses, bowel sounds normal Neurological: A&O, moves all extremities Skin: Warm and dry, no rashes Musculoskeletal: Neck is supple non tender Extremities: symmetrical, full range of motion Psychiatric: Patient is oriented X 3, there is no agitation Source: Patient Exam Limitations: No limitations - Personal History Current Tetanus/Diphtheria Vaccine: Yes Tetanus Vaccine Date: WITHIN 10 Y - Medical/Surgical History Hx Asthma: No Hx Chronic Respiratory Disease: No Hx Diabetes: No Hx Cardiac Disease: No Hx Renal Disease: No Hx Cirrhosis: No Hx Alcoholism: No Hx HIV/AIDS: No Hx Splenectomy or Spleen Trauma: No Other PMH: RA, Osteoarthritis,. Sjogen's, osteoporosis - Social History Smoking Status: Former smoker Constitutional: Initial Vital Signs Temperature (C) 36.7 C 10/08/17 22:44 Heart Rate 79 10/08/17 22:44 Respiratory Rate 20 10/08/17 22:44 Blood Pressure 148/113 H 10/08/17 22:44 O2 Sat (%) 91 L 10/08/17 22:44 O2 Delivery Mode Room Air Allergies/Adverse Reactions: Penicillins Allergy (Severe, Verified 07/27/17 17:13) Anaphylaxis/TROUBLE BREATHING CATS Allergy (Severe, Uncoded 10/10/12 19:18) TROUBLE BREATHING DONNIE NUTS Allergy (Severe, Uncoded 10/10/12 19:18) TROUBLE BREATHING ENVIRONMENTAL Allergy (Uncoded 10/18/12 10:59) Other-Enter Comments Home Medications: Medication Instructions Recorded Gabapentin [Neurontin 300 MG (RX)] 900 mg PO TID 10/14/12 cycloSPORINE 0.05% [Restasis Opht 1 drop EACHEYE BID 10/14/12 Drops(RX)] valACYclovir [Valtrex (RX)] 1,000 mg PO DAILY 10/24/13 oxyCODONE HCL [Oxycontin] 40 mg PO TID 03/18/16 Baclofen [Baclofen 10 mg (RX)] 10 mg PO Q8 PRN 03/19/16 oxyCODONE IR [Oxycodone Ir (RX)] 10 - 20 mg PO Q4 PRN 03/19/16 Nortriptyline HCl 06/26/17 Abatacept [Orencia Clickject] 07/27/17 Hydrocodone/APAP 5/325 [[place] 1 tab PO Q6H PRN #10 tab 07/27/17 5/325 (RX)] predniSONE [prednisone 10mg (RX)] 40 mg PO DAILY 3 Days tab 07/27/17 predniSONE 10 mg PO AD #15 tab 08/05/17 Medical Decision Making - Diagnostics EKG Interpretation: EKG: Complete interpretation has been separately recorded in the [email or web address] archive. Summary impression: Normal sinus rhythm Imaging Results: Imaging Impressions Chest X-Ray 10/08/17 23:14 Impression: No acute thoracic abnormality. Differential Diagnosis: 62-year-old female, comes in from home with sore throat and diffuse burning chest pain with no other symptoms. She does have a history of GERD and rheumatoid arthritis. On exam, she has normal vital signs, she is somewhat uncomfortable appearing. She appears somewhat intoxicated though denies alcohol use. Her abdominal exam is benign. Differential diagnosis includes GERD, gastritis, pneumothorax, pharyngitis, ACS less likely. In the emergency department, EKG and chest x-ray were performed and were unremarkable. Patient was given a GI cocktail with minimal improvement in her symptoms. Lab tests were then ordered which are unremarkable. The patient would like to go home, she would like to see if her pain improves with rest. I feel this is reasonable. I suspect she is suffering from GERD. She says she will be able to follow up with her primary care doctor in the morning. - Data Points Laboratory Results: Laboratory Results 10/09/17 00:27 10/09/17 00:27 10/09/17 10/09/17 00: 00:27 WBC 6.44 10^3/uL 10^3/uL (3.80-9.50) RBC 4.28 10^6/uL 10^6/uL (4.18-5.33) Hgb 14.2 g/dL g/dL (12.6-16.3) Hct 42.8 % % (38.0-47.0) MCV 100.0 fL H fL (81.5-99.8) MCH 33.2 pg pg (27.9-34.1) MCHC 33.2 g/dL g/dL (32.4-36.7) RDW 15.7 % H % (11.5-15.2) Plt Count 281 10^3/uL 10^3/uL (150-400) MPV 8.4 fL L fL (8.7-11.7) Neut % (Auto) 54.8 % % (39.3-74.2) Lymph % (Auto) 27.5 % % (15.0-45.0) [place] % (Auto) 11.2 % % (4.5-13.0) Eos % (Auto) 5.7 % % (0.6-7.6) Baso % (Auto) 0.5 % % (0.3-1.7) Nucleat RBC Rel Count 0.0 % % (0.0-0.2) Absolute Neuts (auto) 3.53 10^3/uL 10^3/uL (1.70-6.50) Absolute Lymphs (auto) 1.77 10^3/uL 10^3/uL (1.00-3.00) Absolute Monos (auto) 0.72 10^3/uL 10^3/uL (0.30-0.80) Absolute Eos (auto) 0.37 10^3/uL 10^3/uL (0.03-0.40) Absolute Basos (auto) 0.03 10^3/uL 10^3/uL (0.02-0.10) Absolute Nucleated RBC 0.00 10^3/uL 10^3/uL (0-0.01) Immature Gran % 0.3 % % (0.0-1.1) Immature Gran # 0.02 10^3/uL 10^3/uL (0.00-0.10) Sodium 142 mEq/L mEq/L (135-145) Potassium 4.4 mEq/L mEq/L (3.5-5.2) Chloride 99 mEq/L mEq/L (97-110) Carbon Dioxide 30 mEq/l mEq/l (22-31) Anion Gap 13 mEq/L mEq/L (8-16) BUN 16 mg/dL mg/dL (7-23) Creatinine 0.6 mg/dL mg/dL (0.6-1.0) Estimated GFR > 60 Glucose 87 mg/dL mg/dL (70-100) Calcium 9.0 mg/dL mg/dL (8.5-10.4) Total Bilirubin 0.6 mg/dL mg/dL (0.1-1.4) AST 39 IU/L IU/L (14-46) ALT 34 IU/L IU/L (9-52) Alkaline Phosphatase 150 IU/L H IU/L (38-126) Troponin I < 0.012 ng/mL ng/mL (0.000-0.034) Total Protein 7.2 g/dL g/dL (6.3-8.2) Albumin 4.1 g/dL g/dL (3.5-5.0) Ethyl Alcohol < 10 mg/dL mg/dL (0-10) Medications Given: Discontinued Medications Al Hydroxide/Mg Hydroxide (Maalox Susp) 30 ml PO EDNOW ONE Stop: 10/08/17 23:15 Last Admin: 10/08/17 23:30 Dose: 30 ml Lidocaine (Lidocaine 2% Viscous) 5 ml PO EDNOW ONE Stop: 10/08/17 23:15 Last Admin: 10/08/17 23:30 Dose: 5 ml Departure - Departure Disposition: Home, Routine, Self-Care Clinical Impression: Sore throat Chest pain Qualifiers: Chest pain type: unspecified Qualified Code(s): R07.9 - Chest pain, unspecified Condition: Good Instructions: Chest Pain (DC) Additional Instructions: The cause of your pain is not entirely clear. If your worse in any way you need to return to the emergency department for recheck. Referrals: Brandi Adams MD [Primary Care Provider] - As per Instructions
[2017-10-09 00:41] LABS: PLATELET COUNT 281 10^3/uL (150-400)
[2017-10-09 00:56] VITALS: BP 145/99; PULSE 80; RESP 18; O2SAT 96
--- NOTE | 2017-10-09 12:40 | CPEKG ---
Heart Rate: 85 RR Interval: 706 P-R Interval: 180 QRSD Interval: 112 QT Interval: 380 QTC Interval: 452 P [place]: 32 QRS [place]: -29 T Wave [place]: 44 EKG Severity - ABNORMAL ECG - EKG Impression: SINUS RHYTHM EKG Impression: NONSPECIFIC INTRAVENTRICULAR CONDUCTION DELAY Electronically Signed By: Valentino Acevedo 11-Oct-2017 09:36:58
== END 2017-10-09 00:56 | disposition home or self-care (01) ==
DX: R07.9 Chest pain, unspecified (principal); J02.9 Acute pharyngitis, unspecified; Z87.891 Personal history of nicotine dependence
CPT/HCPCS: G0480

== ENCOUNTER 2018-04-08 10:44 | Observation (INO) | payer OTHER, MEDICARE ==
[2018-04-08] MEDS ORDERED: LORazepam 2 MG/ML INJ IVP ONE (12:06)
[2018-04-08] MEDS ORDERED: NS 1,000 ML IV ONE ×2 (12:06→14:00)
--- NOTE | 2018-04-08 12:11 | EDPHY ---
H & P Stated Complaint: SEEN THURSDAY FOR SAME/DENTAL SURG SAW ORAL SURGEON THU/ Time Seen by Provider: 04/08/18 11:44 HPI/ROS: CHIEF COMPLAINT: "I just feel jittery and weird" HISTORY OF PRESENT ILLNESS: 62-year-old female seen by myself in the ER few days ago concerned about possible infection to her dental implants. At that time she was given clindamycin as she is penicillin allergic. 3 days ago she saw her oral surgeon Dr. Duc Mckeon who recommended emergent extraction which was performed the following day of tooth number 24. She was given prescription for Dilaudid. She is in the ER with her friend complaining of intractable vomiting,"feeling weird and jittery". Decreased oral intake secondary to nausea. REVIEW OF SYSTEMS: A ten point review of systems was performed and is negative with the exception of the items mentioned in the HPI PAST MEDICAL & SURGICAL HISTORY: History of alcoholism. History of chronic pain. History of multiple dental implants. SOCIAL HISTORY: History of alcoholism PHYSICAL EXAM (Prior to examination, patient consented to physical exam, hands were washed and my usual and customary physical exam procedures followed) 1) GENERAL: Well-developed, well-nourished, alert and oriented. Appears anxious , difficulty sitting still 2) HEAD: Normocephalic, atraumatic 3) HEENT: Pupils equal, round, reactive to light bilaterally. Sclera anicteric. Nasopharynx, oropharynx, clear, no lesions. Tooth 24 socket noted no signs of acute infection. Floor of mouth soft , no induration, no tenderness , no signs of Kurt's angina. Submental submandibular spaces are soft. Symmetrical faces with nasolabial fold symmetrical. Dry mucous membranes Ears bilaterally with normal tympanic membranes. 4) NECK: Full range of motion, no meningeal signs. 5) LUNGS: Clear auscultation bilaterally, no wheezes, no rhonchi, no retractions. 6) HEART: Regular rate and rhythm, no murmur, no heave, no gallop. 7) ABDOMEN: No guarding, no rebound, no focal tenderness, negative McBurney's, negative Norman's, negative Rovsing's, negative peritoneal sign, 8) MUSCULOSKELETAL: Moving all extremities, no focal areas of tenderness, no obvious trauma. No peripheral edema or discoloration. 9) BACK: No CVA tenderness, no midline vertebral tenderness, no fluctuance, no step-off, no obvious trauma, no visual or palpable abnormality. 10) SKIN: No rash, no petechiae. 11) Psychiatric: Patient is oriented X 3, there is no agitation. DIFFERENTIAL DIAGNOSIS: In no particular order including but not limited to odontogenic infection, pre renal azotemia, gingivitis - Personal History Current Tetanus Diphtheria and Acellular Pertussis (TDAP): Yes Tetanus Vaccine Date: WITHIN 10 Y - Medical/Surgical History Hx Asthma: No Hx Chronic Respiratory Disease: No Hx Diabetes: No Hx Cardiac Disease: No Hx Renal Disease: No Hx Cirrhosis: No Hx Alcoholism: No Hx HIV/AIDS: No Hx Splenectomy or Spleen Trauma: No Other PMH: RA, Osteoarthritis,. Sjogen's, osteoporosis - Social History Smoking Status: Former smoker Constitutional: Initial Vital Signs Temperature (C) 36.7 C 04/08/18 10:53 Heart Rate 93 04/08/18 10:53 Respiratory Rate 18 04/08/18 10:53 Blood Pressure 123/100 H 04/08/18 10:53 O2 Sat (%) 92 04/08/18 10:53 O2 Delivery Mode Nasal Cannula O2 (L/minute) 2 Allergies/Adverse Reactions: Penicillins Allergy (Severe, Verified 04/08/18 10:48) Anaphylaxis/TROUBLE BREATHING CATS Allergy (Severe, Uncoded 10/10/12 19:18) TROUBLE BREATHING DONNIE NUTS Allergy (Severe, Uncoded 10/10/12 19:18) TROUBLE BREATHING ENVIRONMENTAL Allergy (Uncoded 10/18/12 10:59) Other-Enter Comments Home Medications: Medication Instructions Recorded Gabapentin [Neurontin 300 MG (RX)] 900 mg PO TID 10/14/12 cycloSPORINE 0.05% [Restasis Opht 1 drop EACHEYE BID 10/14/12 Drops(RX)] valACYclovir [Valtrex (RX)] 1,000 mg PO DAILY 10/24/13 Baclofen [Baclofen 10 mg (RX)] 10 mg PO Q8 PRN 03/19/16 Nortriptyline HCl 06/26/17 Abatacept [Orencia Clickject] 07/27/17 Clindamycin HCl [Clindamycin] 300 mg PO TID 7 Days cap 04/04/18 Baclofen 04/08/18 Neurontin 04/08/18 Oxycontin 04/08/18 Medical Decision Making ED Course/Re-evaluation: 12:10 p.m.: Old medical records reviewed. She has dry mucous membranes. Heart rate is normal. She does appear anxious. She thinks she would feel better with IV fluids. I think it is reasonable to administer IV fluids as well as IV Ativan and will plan on re-evaluation.. On examination I see no evidence of deep space infection, no evidence of Kurt's angina. I do not think that imaging studies indicated at this time. I saw this patient independently based on established practice protocols. Care of patient under supervision of secondary supervising physician Dr Lee with whom I discussed case. 1:00 p.m.: Re-evaluation, sleeping 2:00 p.m.: Re-evaluation, patient's BUN creatinine ratio is elevated 27, creatinine today is 1.4 up from prior level of 0.6 in October 09, 2017 2:24 p.m.: Phone consultation with hospitalist Dr. Ivory who agrees to admit patient for volume depletion, prerenal azotemia. Discussed this with the patient, she is agreeable with admission. Doubt acute surgical abdominal pathology in absence of subjective or objective abdominal pain. - Data Points Laboratory Results: Laboratory Results 04/08/18 12:51 04/08/18 12:51 04/08/18 04/08/18 04/08/18 13:22 12:51 12:51 WBC 6.76 10^3/uL 10^3/uL (3.80-9.50) RBC 3.59 10^6/uL L 10^6/uL (4.18-5.33) Hgb 12.0 g/dL L g/dL (12.6-16.3) Hct 36.2 % L % (38.0-47.0) MCV 100.8 fL H fL (81.5-99.8) MCH 33.4 pg pg (27.9-34.1) MCHC 33.1 g/dL g/dL (32.4-36.7) RDW 14.6 % % (11.5-15.2) Plt Count 381 10^3/uL 10^3/uL (150-400) MPV 8.6 fL L fL (8.7-11.7) Neut % (Auto) 61.5 % % (39.3-74.2) Lymph % (Auto) 26.0 % % (15.0-45.0) [place] % (Auto) 7.2 % % (4.5-13.0) Eos % (Auto) 4.7 % % (0.6-7.6) Baso % (Auto) 0.3 % % (0.3-1.7) Nucleat RBC Rel Count 0.0 % % (0.0-0.2) Absolute Neuts (auto) 4.15 10^3/uL 10^3/uL (1.70-6.50) Absolute Lymphs (auto) 1.76 10^3/uL 10^3/uL (1.00-3.00) Absolute Monos (auto) 0.49 10^3/uL 10^3/uL (0.30-0.80) Absolute Eos (auto) 0.32 10^3/uL 10^3/uL (0.03-0.40) Absolute Basos (auto) 0.02 10^3/uL 10^3/uL (0.02-0.10) Absolute Nucleated RBC 0.00 10^3/uL 10^3/uL (0-0.01) Immature Gran % 0.3 % % (0.0-1.1) Immature Gran # 0.02 10^3/uL 10^3/uL (0.00-0.10) Sodium 136 mEq/L mEq/L (135-145) Potassium 4.1 mEq/L mEq/L (3.3-5.0) Chloride 103 mEq/L mEq/L (97-110) Carbon Dioxide 24 mEq/l mEq/l (22-31) Anion Gap 9 mEq/L mEq/L (8-16) BUN 38 mg/dL H mg/dL (7-23) Creatinine 1.4 mg/dL H mg/dL (0.6-1.0) Estimated GFR 38 Glucose 91 mg/dL mg/dL (70-100) Calcium 9.3 mg/dL mg/dL (8.5-10.4) Creatine Kinase 71 IU/L IU/L (0-156) Medications Given: Discontinued Medications Sodium Chloride (Ns) 1,000 mls @ 0 mls/hr IV ONCE ONE PRN Reason: Wide Open Stop: 04/08/18 12:07 Last Admin: 04/08/18 12:50 Dose: 1,000 mls Sodium Chloride (Ns) 1,000 mls @ 0 mls/hr IV ONCE ONE PRN Reason: Wide Open Stop: 04/08/18 14:01 Last Admin: 04/08/18 14:31 Dose: 1,000 mls Lorazepam (Ativan Injection) 1 mg IVP EDNOW ONE Stop: 04/08/18 12:07 Last Admin: 04/08/18 12:50 Dose: 1 mg Departure - Departure Disposition: [facility] Clinical Impression: Volume depletion, Elevated serum creatinine, Acute prerenal azotemia Condition: Fair
[2018-04-08 13:02] LABS: PLATELET COUNT 381 10^3/uL (150-400)
[2018-04-08 14:19] LABS: CREATINE KINASE 71 IU/L (0-156)
[2018-04-08] MEDS ORDERED: AMMONIA AROMATIC 1 EACH AMP IH ONE (14:29)
[2018-04-08] MEDS ORDERED: PROMETHAZINE HCL 25 MG/ML INJ IVP PRN (15:08)
[2018-04-08] MEDS ORDERED: ONDANSETRON DISINTEGRATING 4 MG TAB PO PRN (15:08)
[2018-04-08] MEDS ORDERED: ACETAMINOPHEN 325 MG TAB PO PRN (15:08)
[2018-04-08] MEDS ORDERED: ONDANSETRON 4 MG/2 ML VIAL IVP PRN (15:08)
--- NOTE | 2018-04-08 16:29 | GHP ---
[f rep st] HISTORY AND PHYSICAL DATE OF ADMISSION: 04/08/2018 CHIEF COMPLAINT: Vomiting. HISTORY OF PRESENT ILLNESS: This is a 62-year-old female with a chief complaint of emesis. She rece ived a milligram of IV Ativan in the emergency department and she was quite somnolent. She will wake up to answer basic questions; however, history is limited by this. She was seen in the ED here 4 da ys ago, diagnosed with a dental infection. She was sent to see Dr. Mckeon who removed a tooth. Thien moser gave her Dilaudid postprocedure. She has had 2 episodes of emesis since then. She tells me this i s nonbloody, nonbilious. She does not have any abdominal pain. She has never had any abdominal surg eries. She has been somewhat constipated which is a chronic problem for her as she is on long-term n arcotics. She does not believe that she has ever had Dilaudid before. She has not had this reaction with other narcotics. She has not had any fevers or dysuria. PAST MEDICAL/SURGICAL HISTORY: 1. Rheumatoid arthritis. 2. Osteoarthritis. 3. Osteoporosis. 4. Chronic pain on continuous narcotics. 5. L5-S1 laminectomy. 6. Rotator cuff. MEDICATIONS: Please see Medication Reconciliation. ALLERGIES: Penicillin, cat, hazelnuts, environmental. FAMILY HISTORY: Reviewed and noncontributory. SOCIAL HISTORY: She smokes a few cigarettes. She does not drink. REVIEW OF SYSTEMS: Ten-point review of systems is conducted and is negative except per HPI. PHYSICAL EXAM: VITAL SIGNS: Blood pressure 124/80, heart rate of 73, respiration rate 16, satting a t 92% on room air, temperature is 36.7. GENERAL: The patient is a pleasant female who is somewhat s omnolent. She initially woke to a sternal rub. HEENT: Shows her to be normocephalic, atraumatic. CARDIOVASCULAR: Exam shows a regular rate and rhythm. There are no murmurs, rubs, or gallops. PULM ONARY: Exam shows her to be in no respiratory distress. She is clear to auscultation bilaterally fr om the anterior apices. ABDOMINAL: Exam shows normal bowel sounds. She is soft nontender, nondiste nded. There is no Norman sign. No guarding or rebound. SKIN: Exam shows no rash. : Exam shows no Prieto. NEUROLOGIC: Exam shows her to be alert and oriented x3. She is somnolent but she is mov ing all extremities. PSYCHIATRIC: Exam shows a normal mood and affect. LABS: Hemoglobin is 12, MCV is 100.8, platelets are 381. Creatinine is 1.4, BUN is 38, potassium is 4.1. DATA: 1. I discussed this with Chloe Rashid in the emergency department. We will admit to med/surg for deh ydration. 2. I reviewed her chart including her last admission which was similar to this. IMPRESSION AND PLAN: 1. Acute kidney injury: This is prerenal. Will hydrate her overnight and follow her creatinine delores orrow morning. If it does not improve, will workup further. 2. Emesis: This seems to be related to her recent Dilaudid use. Would avoid this. We will need to continue her other narcotics. 3. Somnolence: I suspect that this is due to Ativan. If this does not resolve, will workup further . 4. Dehydration: Will provide her normal saline. 5. Rheumatoid arthritis: Will continue her outpatient medications. 6. Chronic pain on continuous narcotics: Will continue these. /[id number]/MODL
[2018-04-08] MEDS: NS 1,000 ML IV SCH ×2 (16:53→17:00)
[2018-04-08] MEDS ORDERED: IBUPROFEN 200 MG TAB PO PRN (19:51)
[2018-04-08] MEDS ORDERED: ABATACEPT 125 MG INJ SCH (20:00)
[2018-04-08] MEDS: BACLOFEN 10 MG TAB PO SCH (20:36)
[2018-04-08] MEDS: FAMOTIDINE 20 MG TAB PO SCH (20:36)
[2018-04-08] MEDS ORDERED: NORTRIPTYLINE HCL 50 MG CAP PO SCH (21:00)
[2018-04-08] MEDS: GABAPENTIN 300 MG CAP PO SCH (21:31)
[2018-04-08] MEDS: oxyCODONE IR 5 MG TAB PO PRN (23:06)
[2018-04-09 05:18] VITALS: BP 143/95
[2018-04-09] MEDS: BACLOFEN 10 MG TAB PO SCH (05:19)
[2018-04-09] MEDS: NS 1,000 ML IV SCH (05:20)
[2018-04-09 05:46] LABS: PLATELET COUNT 308 10^3/uL (150-400)
[2018-04-09] MEDS: oxyCODONE IR 5 MG TAB PO PRN (05:53)
[2018-04-09] MEDS: GABAPENTIN 300 MG CAP PO SCH (08:27)
[2018-04-09] MEDS: FAMOTIDINE 20 MG TAB PO SCH (08:28)
[2018-04-09] MEDS ORDERED: PANTOPRAZOLE SODIUM 40 MG TAB PO SCH (09:00)
[2018-04-09] MEDS ORDERED: valACYclovir 500 MG TAB PO SCH (09:00)
--- NOTE | 2018-04-09 09:51 | ASMTLACE ---
LACE Length of stay for Answers: Less than 1 day current admission Comorbidities - select Answers: Opioid dependence all that apply / Chronic pain # of Emergency department Answers: 3-4 visits in the last 6 months Social determinants Answers: History of substance abuse (ETOH, street drugs, prescription drugs, etc.) Score: 10 Date Signed: 04/09/2018 09:50 AM Electronically Signed By:Chiqui Martinez RN
--- NOTE | 2018-04-09 09:56 | ASDISCHSUM ---
Discharge Information Plan Status:Home with No Needs Medically Cleared to Leave:04/09/2018 Discharge Date:04/09/2018 CM D/C Disposition:Home, Routine, Self-Care ADT D/C Disposition:Home, Routine, Self-Care Projected Discharge Date:04/09/2018 Transportation at D/C:Friend Discharge Delay Reason: Follow-Up Date:04/09/2018 Discharge Slot: Final Diagnosis: Placement Information Patient Contact Information Contact Name:EBONY Relationship:Friend Address: City: [facility] Phone: State/Zip Code: Email: Financial Information Financial Class:Medicare Primary Plan Desc:MEDICARE OUTPATIENT Primary Plan Number:[id number] Secondary Plan Desc:[employer]/MDR SUPPLEMENT Secondary Plan Number:[id number] Assessment Information LACE LACE Length of stay for Answers: Less than 1 day current admission Comorbidities - select Answers: Opioid dependence all that apply / Chronic pain # of Emergency department Answers: 3-4 visits in the last 6 months Social determinants Answers: History of substance abuse (ETOH, street drugs, prescription drugs, etc.) Score: 10 Date Signed: 04/09/2018 09:50 AM Electronically Signed By:Chiqui Martinez RN [facility] CM Progress Note CM Note CM Note Notes: Patient discussed with hospital medicine. She was dehydrated from a pulled tooth and antibiotics that made her ill. She has a caregiver who looks after her. She has a physician she follows up with for her pain control. No other needs identified at this time. CM available should needs arise. plan: Dc to home independently with school childcare attendant. Date Signed: 04/09/2018 09:54 AM Electronically Signed By:Chiqui Martinez RN Intervention Information
--- NOTE | 2018-04-09 13:24 | GDS ---
[f rep st] DISCHARGE SUMMARY DISCHARGE DIAGNOSES: 1. Acute renal insufficiency. 2. Dehydration. 3. Emesis. 4. Somnolence. 5. Rheumatoid arthritis. 6. Chronic pain on continuous narcotics. PHYSICAL EXAM: GENERAL: The patient is alert. VITAL SIGNS: Afebrile at 36.4, pulse is 78, respira tory rate 16, blood pressure is 143/95, she is saturating greater than 90% on room air. I have seen and evaluated the patient on the day of discharge. HOSPITAL COURSE: Patient is a 62-year-old female, presents to the emergency room with complaints of vomiting. She was evaluated and diagnosed with. 1. Acute kidney injury. This is in the setting of dehydration. She has responded well to hydration IV therapy and her renal function has corrected to normal. 2. Emesis. This is likely adverse reaction to narcotic medications. This has resolved. The patien paz has had no further bouts of emesis since admission. Her Dilaudid has been removed from her regimen . 3. Somnolence, likely secondary to adverse medication reaction. The patient's mentation is at basel ine. 4. Dehydration, resolved with IV fluids. 5. Rheumatoid arthritis. This is at baseline. 6. Chronic pain on continuous narcotics. Her pain medications have been continued. 7. Recent dental infection. The patient states that she had a recent dental infection with teeth pu lling and bone grafting. She was to be taking clindamycin, however, she states that this was making her feel ill. I have discharged her with Bactrim as she does have a penicillin allergy. She will fo llow up with her primary care physician, Dr. Eric Adams. DISCHARGE MEDICATIONS: Please refer to EMR form. I have provided a prescription for the patient for Bactrim DS to be taken for 7 days. I have not adjusted the patient's other previously prescribed [facility] medications to the best of my knowledge. /[id number]/MODL
== END 2018-04-09 10:08 | disposition home or self-care (01) ==
LOC: F3E 16:10
PROVIDERS: ADMIT Student in an Organized Health Care Education/Training Program; ATTEND Student in an Organized Health Care Education/Training Program
DX: N28.9 Disorder of kidney and ureter, unspecified (principal); E86.0 Dehydration; R11.10 Vomiting, unspecified; M06.9 Rheumatoid arthritis, unspecified; G89.29 Other chronic pain
CPT/HCPCS: G0378; J2060; 96374

== ENCOUNTER 2018-05-25 12:51 | Inpatient (IN) | payer OTHER, MEDICARE ==
[2018-05-25] MEDS ORDERED: ACETAMINOPHEN 325 MG TAB PO PRN (13:56)
[2018-05-25] MEDS ORDERED: ONDANSETRON 4 MG/2 ML VIAL IVP PRN (13:56)
[2018-05-25] MEDS ORDERED: ONDANSETRON DISINTEGRATING 4 MG TAB PO PRN (13:56)
[2018-05-25] MEDS ORDERED: cycloSPORINE 0.05% 30 DROPERETTE/BOX EACHEYE PRN (14:16)
[2018-05-25] MEDS ORDERED: oxyCODONE IR 5 MG TAB PO PRN (14:16)
[2018-05-25] MEDS ORDERED: IBUPROFEN 200 MG TAB PO PRN (14:16)
[2018-05-25 14:29] LABS: PLATELET COUNT 297 10^3/uL (150-400)
[2018-05-25] MEDS ORDERED: ABATACEPT 125 MG INJ SCH (14:30)
--- NOTE | 2018-05-25 14:54 | GHP ---
DATE OF ADMISSION: 05/25/2018 CHIEF COMPLAINT: Pain under mandible. HISTORY OF PRESENT ILLNESS: Ms. Stephenson is a 62-year-old woman. She has a history significant for rh eumatoid arthritis, currently on no medications, Sjogren syndrome, and chronic pain, followed by Dr. Naidu. She comes in after dealing with some dental issues for several weeks. She has been followed closely by Dr. Juvencio Mckeon and noted increasing pain after some dental work. Her pain primarily is located under her chin in the hollow of her mandible. She has had increasing swelling and tender ness, which has responded to antibiotics. However, as soon as the antibiotics have been discontinued , the swelling and tenderness recur. After multiple visits and most recently some x-rays done in the office, it was noted that she had some evidence of possible bony involvement of an infection and she is being admitted for further evaluation and debridement of this area. The source looks to be 2 apolonia th on her lower jaw; however, the patient has been resistant to having these extracted. She recently has been on Levaquin over the last week for the pain and swelling, which has improved he r symptoms; however, she still has a large, indurated area under her chin with some adenopathy surrou nding it. No fevers, chills. She has had nausea intermittently and emesis. She denies any headache , chest pain, shortness of breath. No changes in her bowels. No urinary symptoms. Her joints have been fairly well controlled. No other significant symptoms except for occasional dizziness. REVIEW OF SYSTEMS: A 10-point review of systems was done and is negative except as stated in the HPI . PAST MEDICAL HISTORY: 1. Chronic pain with chronic narcotic dependency, followed by Dr. Naidu, likely due to her rheumato id arthritis. 2. Rheumatoid arthritis. Has been on different medications in the past but currently is only on carol n medication. Followed by Dr. Carrion. She has been by Dr. Mendiola. 3. Sjogren syndrome. 4. Osteoarthritis. 5. Osteoporosis. 6. Dyslipidemia. 7. History of pneumonia. 8. HSV. 9. Chronic neck and back pain, followed by Guillaume Rogers. 10. GE reflux disease. PAST SURGICAL HISTORY: Includes hysterectomy, knee surgery, lumbar surgery and wrist surgery. SOCIAL HISTORY: She drinks alcohol once a week. She smokes about 5 cigarettes per day but denies an y history of substance abuse. She does have a therapy dog, "Little Arian," who actually helps quite a bit with her level of anxiety. FAMILY HISTORY: She is adopted. Family history unknown. MEDICATIONS: Please see med reconciliation form. ALLERGIES: Cats, penicillin, as well as Phenergan causes some torticollis. PHYSICAL EXAMINATION: VITAL SIGNS: She is alert. She is very minimally tremulous and tends to move and pace throughout the visit. HEENT: Atraumatic. Pupils are equal. Extraocular movements intact . Sclerae anicteric. Dentition: She refused to show me her teeth. She does have a fullness with s ome tenderness under her lower jaw with some adenopathy noted submandibular. No warmth or erythema n oted. HEART: Regular with a soft systolic murmur. This is unchanged. LUNGS: Clear bilaterally wi thout wheeze or rhonchi. ABDOMEN: Soft, nontender, nondistended. EXTREMITIES: No clubbing, cyanos is or edema. MUSCULOSKELETAL: No obvious joint deformities or effusions noted. SKIN: Intact. No obvious rash. NEUROLOGIC: Again, she is not exactly tremulous but does pace and move constantly. S peech is fluent. She does occasionally stutter. ASSESSMENT AND PLAN: 1. Possible osteomyelitis secondary to dental infection under her mandible. Dr. Mckeon plans to take her to the OR to get a good look at the area under general anesthesia. He will be in later toda y to preop her. In the meantime, I will get a CBC and basic metabolic panel. Per Dr. Mckeon's re quest, I have consulted Dr. Gilmore from infectious disease regarding ongoing treatment if this is, ind ed, osteomyelitis. 2. Personality disorder. Patient has a personality disorder. She gets quite agitated easily and an gers easily; however, she has been compliant with me in the recent as far as either making appointments or rescheduling them. 3. Chronic pain with chronic narcotic dependency. Will resume her usual medications while she is he re. 4. Gastroesophageal reflux disease. Continue medications. 5. Rheumatoid arthritis, relatively stable at this point. 6. Sjogren syndrome, likely contributing to her dental issues. 7. Osteoporosis, not currently on a bisphosphonate. /[id number]/MODL
[2018-05-25] MEDS: BACLOFEN 10 MG TAB PO SCH ×2 (15:35→21:39)
[2018-05-25] MEDS: valACYclovir 500 MG TAB PO SCH (15:35)
[2018-05-25] MEDS: GABAPENTIN 300 MG CAP PO SCH ×2 (15:36→21:41)
[2018-05-25] MEDS ORDERED: HYDROCODONE/APAP 5/325 TAB PO PRN (16:09)
--- NOTE | 2018-05-25 19:46 | GCON ---
INFECTIOUS DISEASES CONSULTATION DATE OF CONSULTATION: 05/25/2018 REFERRING PHYSICIAN: Brandi Adams MD REASON FOR CONSULTATION: Odontogenic infection. HISTORY OF PRESENT ILLNESS: Patient is a 62-year-old female with a past medical history of rheumatoi d arthritis and Sjogren syndrome, whom I am asked to see in consultation for a submental infection. The patient has had difficulty with her teeth for the last 5 months. She has had multiple teeth extr acted and describes having recurring submental swelling and induration, with tenderness intermittentl y. She previously received treatment with clindamycin, which did not provide significant relief in h er symptoms. She subsequently has received treatment with levofloxacin based on a preceding penicill in allergy and notes that she has improvement in the submental symptoms, but these recur after its di scontinuation. Most recently, she had increased swelling and tenderness with difficulty opening her mouth and eating at the beginning of last weekend. She was resumed on levofloxacin with clinical imp rovement, but persistent pain and induration underneath her chin. She has undergone imaging with Dr. Mckeon with concerns that she has mandibular osteomyelitis associated with additional teeth that require extraction. The patient, however, is highly opposed to further extraction of her teeth. She does not note fever or chills. She has had associated submandibular lymphadenopathy. She does note occasional nausea with vomiting. Based on her recurrent submental swelling, she was admitted for pl anned aspiration of this area in the OR tomorrow with extraction of residual affected teeth. Given t he above findings, I am now asked to assist in her ongoing management. PAST MEDICAL HISTORY: Rheumatoid arthritis, postoperative back infection in 2010, chronic pain, oste oarthritis, osteoporosis, hyperlipidemia, chronic back pain. PAST SURGICAL HISTORY: Lumbar spine surgery, hysterectomy, knee surgery. CURRENT MEDICATIONS: Valtrex 1 g p.o. daily, Zyrtec 10 mg p.o. q.h.s., baclofen 10 mg p.o. t.i.d., R estasis eyedrops b.i.d., Pepcid 20 mg p.o. b.i.d., Neurontin 300 mg p.o. t.i.d., Orencia injection we niharikaly, Preservision p.o. b.i.d., Pamelor 100 mg p.o. q.h.s., OxyContin 40 mg p.o. t.i.d., OxyIR as nee ded, Protonix 40 mg p.o. q.h.s. ALLERGIES: Penicillin associated with difficulty breathing; patient notes she has tolerated cephalex in. SOCIAL HISTORY: The patient notes that she has been vaping recently. Alcohol socially. No drug use . FAMILY HISTORY: Unknown. REVIEW OF SYSTEMS: Outside that noted in the HPI, the remainder of 10-system review is unremarkable or unobtainable from the patient this evening. PHYSICAL EXAMINATION: VITAL SIGNS: Temperature 36.8, heart rate 99, respiratory rate 16, blood pres sure 120/78, oxygen saturation 91% on room air. GENERAL: Patient is agitated and paces the room int ermittently during interview. HEENT: There is no scleral icterus, conjunctival injection, or conjun ctival petechiae. Oropharynx shows moist mucous membranes. There is tenderness along the lower dent al bridge. This is most prominent on the left. There is induration and tenderness in the submental region, without erythema or fluctuance. There is no palpable fullness in the floor of the mouth. NE CK: Supple, with shotty tender submandibular lymphadenopathy on the left. No palpable thyromegaly. CHEST: Clear to auscultation bilaterally, without adventitious sounds. Respiratory effort is pepe l. CARDIOVASCULAR: Regular rate and rhythm, without murmurs, gallops, or rubs. ABDOMEN: Soft, non tender, nondistended. There is no palpable organomegaly. MUSCULOSKELETAL: There is no cyanosis, cl ubbing, or edema. SKIN: No stigmata of endocarditis. Skin is warm and dry to touch. NEUROLOGIC: Patient is agitated, as outlined above. PSYCHIATRIC: Patient is tearful at times during the exam. LYMPHATICS: Submandibular nodes as outlined above, no supraclavicular nodes. LABORATORY DATA: White blood cell count 6.4, hematocrit 34.0, platelets 297, neutrophils 59%, lympho cytes 27%. Serum creatinine is 0.7, AST 23, ALT 24, bilirubin 0.4, albumin 3.8. CT scan of the face from 04/30/2018 is reviewed with Radiology today, showing multiple lucencies along the left mandible related to dental extraction, as well as lucency around the roots of tooth numbers 22, 23, 24, and 2 5, with absence of root on the 24th tooth. No abscess was noted. IMPRESSION: Recurrent submandibular induration and tenderness, likely of infectious etiology, associ ated with odontogenic etiology with multiple teeth showing significant lucency around the roots of he r lower jaw. Most likely, this will be due to typical oral stormy. Discussed with the patient that d ental extraction of the teeth showing significant lucency would be likely necessary for definitive ma nagement of her submental infection. She is adamantly opposed to further dental extraction currently and states she will only agree to biopsy of the submental region. I have discussed with her that if the submental area represents infection of odontogenic etiology, that resolution will not be achieve d in the absence of extraction of affected teeth. Recommend observation off antibiotics currently so as to maximize any culture data if submental area is aspirated. Further determination of antibiotic therapy based on operative findings. RECOMMENDATIONS: 1. Observe off antibiotics pending operative exploration. 2. Encourage the patient to consider dental extraction, which she is adamantly opposed to. 3. Clinical findings and plan have been reviewed with Dr. Mckeon. Thank you for this consultation. We will continue to follow the patient with you. /[id number]/MODL
--- NOTE | 2018-05-25 20:23 | SOAPPROG ---
SOAP Progress Note Assessment/Plan: s: Consulting on this 62 yo female with a 4 month history of swelling and pain in her mandible s/p tooth extractions and poor dental health. She has recent history of severe swelling in the submental area noted by her dentist Dr. Mcnally. She was started on Levaquin ( this is her second round of Levaquin after 3 separate week-long courses of clindamycin with episodes of waxing and waning swelling and pain in between.) Over the last 4 months, her clinical course has been marked by starting a round of antibiotics, a decrease in swelling and pain, the antibiotic wears off and she has pain and swelling again. She received a CT scan in the hospital 3 weeks ago which showed no drainable abscess, but last week developed pain and substantial swelling under her chin/submental area. A [facility] CT scan was taken in her Dentst Dr. Mcnally' s office and it showed areas of mottled, necrotic bone with tooth #23 draining into the area. She has markedly improved since starting this latest round of Levaquin, but the tooth and necrotic bone remain. Exam: slight swelling under mandible in the anterior. MVO WNL, mobility on #23 and 25 with pain on percussion. FLoor of mouth with some slight swelling, again greatly improved since starting the antibiotics. a/p- dental abscess stemming from anterior tooth and potential developing osteomyelitis. 1) plan to take to the OR tomorrow for I and D of submental space, debride necrotic/loose bone in the mandible and extraction of offending tooth 2) Reviewed RBA to procedure with patient in detail and she agreed by signing the consent form. 3) NPO past midnight 4) will likely have ID give recommendations on oysterman abx post op 5) will need hospitalist input on post op pain control as she is oysterman chronic pain patient. She will need pain meds for breakthrough pain. Abdias Mckeon DDS Objective: Vital Signs Temp Pulse Resp BP Pulse Ox 36.8 C 99 120/78 91 L 05/25/18 14:00 05/25/18 14:00 05/25/18 14:00 05/25/18 14:00 Laboratory Results 05/25/18 14:21 05/25/18 14:21 ICD10 Worksheet Patient Problems: Problems Problem Status Onset Acute prerenal azotemia Acute Dehydration Acute Elevated serum creatinine Acute Hypoxia Acute Leg pain, medial Acute Narcotic abuse Acute Volume depletion Acute
[2018-05-25] MEDS: PANTOPRAZOLE SODIUM 40 MG TAB PO SCH (21:36)
[2018-05-25] MEDS: FAMOTIDINE 20 MG TAB PO SCH (21:37)
[2018-05-25] MEDS: CETIRIZINE 10 MG TAB PO SCH (21:39)
[2018-05-25] MEDS: PRESERVISION AREDS2 FORMULA EYE VIT 1 EACH PO SCH (21:40)
[2018-05-25] MEDS: NORTRIPTYLINE HCL 50 MG CAP PO SCH (21:40)
[2018-05-25] MEDS: DOXYLAMINE SUCCINATE 25 MG PO SCH (23:10)
[2018-05-26] MEDS ORDERED: diphenhydrAMINE 25 MG CAP PO ONE (00:10)
[2018-05-26] MEDS ORDERED: BUPIVACAINE 0.5% 30 ML SDV ONE (06:45)
[2018-05-26] MEDS ORDERED: BACITRACIN ZINC 14.2 GM OINTTUBE TP ONE (06:45)
[2018-05-26] MEDS ORDERED: CHLORHEXIDINE GLUCONATE 15 ML UDL ONE (06:46)
[2018-05-26] MEDS ORDERED: LIDO/EPI 2%** Not for Epidural 20 ML MDV ONE (06:47)
[2018-05-26] MEDS ORDERED: POLYMYXIN B SULFATE 500,000 UNIT/10 ML SYR IRR ONE (06:47)
[2018-05-26] MEDS ORDERED: BACITRACIN 50,000 UNITS/10 ML SYR IRR ONE (06:47)
--- NOTE | 2018-05-26 08:00 | PDHPUP ---
History & Physical Update H&P update statement: This history and physical update is based on an assessment of the patient which was completed after admission or registration (within 24 hours), but prior to the surgery/procedure. H&P update: no change in patient's condition since H&P completed
[2018-05-26] MEDS ORDERED: PROPOFOL/EMULSION 500 MG/50 ML BOTTLE IV ONE (08:04)
[2018-05-26] MEDS ORDERED: fentaNYL 250 MCG/5 ML INJ ONE (08:05)
[2018-05-26] MEDS ORDERED: LIDOCAINE 2% 2 ML INJ ONE (08:07)
[2018-05-26] MEDS ORDERED: MIDAZOLAM 2 MG/2 ML VIAL ONE (08:10)
[2018-05-26] MEDS ORDERED: OXYMETAZOLINE 30 ML NASAL SPRAY ONE (08:10)
[2018-05-26] MEDS ORDERED: LIDOCAINE 2% JELLY 5 ML TUBE ONE ×2 (08:13→08:19)
[2018-05-26] MEDS ORDERED: PHENYLEPHRINE HCL 100 MCG/ML SYR ONE (08:13)
[2018-05-26] MEDS ORDERED: MIDAZOLAM 2 MG/2 ML VIAL IVP ONE (08:15)
[2018-05-26] MEDS ORDERED: KETAMINE 200 MG/20 ML VIAL ONE (08:17)
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
[2018-05-26] MEDS ORDERED: HYDROmorphONE/DILAUDID 2 MG/ML INJ ONE (08:36)
[2018-05-26] MEDS ORDERED: DEXAMETHASONE 4 MG/ML VIAL ONE (08:37)
[2018-05-26] MEDS ORDERED: ROCURONIUM 50 MG/5 ML VIAL ONE (08:37)
[2018-05-26] MEDS ORDERED: ONDANSETRON 4 MG/2 ML VIAL ONE (08:37)
[2018-05-26] MEDS ORDERED: SUGAMMADEX SODIUM 200 MG/2 ML VIAL IVP ONE (08:37)
[2018-05-26] MEDS ORDERED: PROMETHAZINE HCL 25 MG/ML INJ IVP PRN (08:52)
[2018-05-26] MEDS ORDERED: ALBUTEROL 3 ML DEYVIAL IH PRN (08:52)
[2018-05-26] MEDS ORDERED: ONDANSETRON 4 MG/2 ML VIAL IVP PRN (08:52)
[2018-05-26] MEDS ORDERED: NALOXONE HCL 0.4 MG/ML INJ IVP PRN (08:52)
[2018-05-26] MEDS ORDERED: LABETALOL HCL 5 MG/ML 20 ML MDV IVP PRN (08:52)
[2018-05-26] MEDS ORDERED: ACETAMINOPHEN 500 MG TAB PO PRN (08:52)
[2018-05-26] MEDS ORDERED: oxyCODONE IR 5 MG TAB PO PRN ×2 (08:52→15:27)
[2018-05-26] MEDS ORDERED: LR 500 ML IV PRN (08:52)
[2018-05-26] MEDS ORDERED: fentaNYL 100 MCG/2 ML INJ IVP PRN (08:52)
--- NOTE | 2018-05-26 08:52 | POSTANESTH ---
Post Anesthetic Evaluation Cardiovascular Status: Normal, Stable Respiratory Status: Normal, Stable Level of Consciousness/Mental Status: Mildly Sleepy, Arousable Pain Control: Adequate, Prn Tx Ordered Nausea/Vomiting Control: Adequate, Prn Tx Ordered Complications Possibly Related to Anesthesia: None Noted
[2018-05-26] MEDS ORDERED: PROPOFOL 200 MG/20 ML VIAL ONE (09:05)
--- NOTE | 2018-05-26 10:01 | POSTOPPROG ---
Post Op Note Date of Operation: 05/26/18 Surgeon: Duc Mckeon Anesthesia: GET(General Endotracheal) Pre-op Diagnosis: osteomyelitis mandible Post-op Diagnosis: same Indication: recurrent swelling in anterior mandible Procedure: I and D of submental space, extract #23, debride mandibular defect Findings: minimal purulence, necrotic bone around # 21, and 23, 24 on lingual Inf/Abcess present in the surg proc area at time of surgery?: Yes Depth: Deep Incisional (Fascial) EBL: Minimal Total fluids administered: 75 LR Complications: none Specimen(s): 1)culture and sensitivity submental abscess 2) culture and sensitivity necrotic bone lingual side of mandible
[2018-05-26] MEDS ORDERED: HYDROmorphONE/DILAUDID 1 MG/ML INJ ONE ×2 (10:52→11:23)
[2018-05-26] MEDS: HYDROmorphONE/DILAUDID 1 MG/ML INJ IVP PRN ×4 (10:54→11:34)
[2018-05-26] MEDS ORDERED: oxyCODONE IR 5 MG TAB ONE (10:59)
[2018-05-26] MEDS: BACLOFEN 10 MG TAB PO SCH ×3 (12:37→21:50)
[2018-05-26] MEDS: PRESERVISION AREDS2 FORMULA EYE VIT 1 EACH PO SCH ×2 (12:37→21:50)
[2018-05-26] MEDS: GABAPENTIN 300 MG CAP PO SCH ×2 (12:38→19:43)
[2018-05-26] MEDS: FAMOTIDINE 20 MG TAB PO SCH ×2 (12:38→21:49)
[2018-05-26] MEDS ORDERED: ALTEPLASE 2 MG VIAL IVP PRN (15:03)
--- NOTE | 2018-05-26 15:05 | PDIAF ---
- Diagnosis Diagnosis: Osteomyelitis of jaw Code Status: Full Code - Medication Management Discharge Medications: Medications to Continue on Transfer Abatacept [Orencia Clickject] 125 mg INJ TU 07/27/17 [Last Taken 05/18/18] Baclofen [Baclofen 10 mg (*)] 10 mg PO TID 04/08/18 [Last Taken 05/25/18 09:00] Gabapentin [Neurontin 300 MG (*)] 300 mg PO TID 04/08/18 [Last Taken 05/25/18 09 :00] Ibuprofen [Motrin (*)] 600 mg PO Q4H PRN 04/08/18 [Last Taken Unknown] Nortriptyline HCl [Pamelor 50 mg (*)] 100 mg PO HS 04/08/18 [Last Taken 05/24/18 ] Ranitidine HCl 300 mg PO HS 04/08/18 [Last Taken 05/24/18] oxyCODONE HCL [Oxycontin] 40 mg PO TID 04/08/18 [Last Taken 05/25/18 09:00] oxyCODONE IR [Oxycodone Ir (*)] 10 mg PO Q4H PRN 04/08/18 [Last Taken Unknown] valACYclovir [Valtrex (*)] 1,000 mg PO DAILY16 04/08/18 [Last Taken 05/24/18] C/E/Zn/Cu/OM3/DHA/EPA/LUT/ZEAX [Preservision Areds 2 Softgel] 1 each PO BID 08/01 [Last Taken 05/25/18] Doxylamine Succinate [Unisom] 25 mg PO HS 05/25/18 [Last Taken 05/24/18] Esomeprazole Magnesium [Nexium] 20 mg PO HS 05/25/18 [Last Taken 05/24/18] Levocetirizine Dihydrochloride [Xyzal] 5 mg PO HS 05/25/18 [Last Taken 05/24/18] [place]-3 Fatty Acids [Fish Oil 1000 mg (*)] 2,000 mg PO BID 05/25/18 [Last Taken 05/25/18] Pantoprazole Sodium [Protonix 40mg (*)] 40 mg PO HS 05/25/18 [Last Taken ] cycloSPORINE 0.05% [Restasis Opht Drops(*)] 1 drop EACHEYE BID PRN 05/25/18 [ Last Taken Unknown] levOFLOXACIN [levAQUIN (*)] 500 mg PO DAILY 05/25/18 [Last Taken 05/24/18] Technical Lead Antibiotics: Ertapenem 1 g IV Q 24 hr Group Home Antibiotic Stop Date: 06/29/18 Discharge Medications: Refer to the Discharge Home Medication list for PRN reason. PICC Care - Routine: Yes - Orders Services needed: Home Prison [facility] Face to Face: I certify that this patient was under my care and that I had the required [id number] encounter meeting the encounter requirements on the discharge day. My findings support the fact that the patient is homebound as defined in Home Care Face to Face Continued: CMS Chapter 7 Medicare Benefits Manual 30.1.1 , The condition of the patient is such that there exists a normal inability to leave home and consequently, leaving home would require a considerable and taxing effort. Isolation Type: None - Labs/Radiology CBC w/diff Date: 05/31/18 CMP Date: 05/31/18 Call or Fax Lab and Imaging Results to: Dr. Gilmore, - Follow Up Care Current Providers and Referrals: Brandi Adams MD [Primary Care Provider] -
--- NOTE | 2018-05-26 15:09 | PCMIDPN ---
Assessment/Plan: Assessment/Plan: * Osteomyelitis of left mandible/submental abscess status post aspiration of abscess and extraction of tooth: Operative findings reviewed with Dr. Mckeon with findings of necrotic bone in left mandible and small abscess in submental location. G stain shows no organisms with cultures pending. Etiology will be odontogenic stormy. Given necrotic bone consistent with osteomyelitis, will need to treat with 6 weeks of IV antibiotics to which the patient is amenable. Will begin ertapenem 1 g IV daily and place PICC line today. Patient with penicillin allergy but has tolerated cephalosporins so reasonable likelihood will also tolerate carbapenem. Side effects of ertapenem reviewed with patient today. 05/26/18 15:05 Subjective: Patient complains of pain postoperatively. Operative findings reviewed with Dr. Mckeon including findings of necrotic mandibular bone surrounding affected tooth in small submental abscess. Objective: Vital Signs Temp Pulse Resp BP Pulse Ox 36.4 C 83 14 110/69 96 05/26/18 11:52 05/26/18 11:52 05/26/18 11:52 05/26/18 14:21 05/26/18 11:52 Microbiology 05/26/18 08:39 Gram Stain - Final Neck - Swab 05/26/18 08:58 Gram Stain - Final Head - Bone Laboratory Results 05/25/18 14:21 05/25/18 14:21 05/25/18 05/26/18 05/27/18 05:59 05:59 05:59 Intake Total 930 Output Total 5 Balance 925 - Physical Exam General Appearance: alert, no apparent distress, non-toxic EENT: other (Submental and lateral jaw swelling present), No scleral icterus Neuro/Psych: alert, other (EOMI), No confused ICD10 Worksheet Patient Problems: Problems Problem Status Onset Acute prerenal azotemia Acute Dehydration Acute Elevated serum creatinine Acute Hypoxia Acute Leg pain, medial Acute Narcotic abuse Acute Volume depletion Acute
[2018-05-26] MEDS ORDERED: GABAPENTIN 300 MG CAP PO SCH (15:27)
[2018-05-26] MEDS: valACYclovir 500 MG TAB PO SCH (15:30)
--- NOTE | 2018-05-26 15:31 | HOSPPROG ---
Hospitalist Progress Note Assessment/Plan: #OA of Mandible #Acute on Chronic Pain Syndrome #RA #Sjogren's Syndrome Plan: -IV Abx per ID via PICC -increase pain meds. Ill adjust long acting, short acting, and prn. Schedule NSAID. For now I am avoiding IV pain meds given the modest increase to PO. If pain is out of control, can consider starting -she needs to stay inpatient for IV abx as well as for pain management Subjective: no cp or sob. lots of mandibular pain. Objective: Vital Signs Temp Pulse Resp BP Pulse Ox 36.4 C 83 14 110/69 96 05/26/18 11:52 05/26/18 11:52 05/26/18 11:52 05/26/18 14:21 05/26/18 11:52 Microbiology 05/26/18 08:39 Gram Stain - Final Neck - Swab 05/26/18 08:58 Gram Stain - Final Head - Bone Laboratory Results 05/25/18 14:21 05/25/18 14:21 05/25/18 05/26/18 05/27/18 05:59 05:59 05:59 Intake Total 930 Output Total 5 Balance 925 - Physical Exam Constitutional: no apparent distress Eyes: PERRL, EOMI Ears, Nose, Mouth, Throat: moist mucous membranes, hearing normal Cardiovascular: regular rate and rhythym, No edema Respiratory: reduced air movement Gastrointestinal: normoactive bowel sounds, soft, non-tender abdomen Skin: warm Neurologic: AAOx3 Psychiatric: interacting appropriately, not anxious, not encephalopathic Lymph, Heme, Immunologic: No petechiae ICD10 Worksheet Patient Problems: Problems Problem Status Onset Acute prerenal azotemia Acute Dehydration Acute Elevated serum creatinine Acute Hypoxia Acute Leg pain, medial Acute Narcotic abuse Acute Volume depletion Acute
[2018-05-26] MEDS ORDERED: IBUPROFEN 600 MG TAB PO SCH ×2 (16:00→21:00)
[2018-05-26] MEDS ORDERED: HYDROmorphONE/DILAUDID 2 MG/ML INJ IVP PRN (16:09)
--- NOTE | 2018-05-26 16:59 | PDMN ---
Medical Necessity Medical necessity: Change to IP, as of 05/26/18, per & MCG M-600; los >2 mn for ongoing management of osteomyelitis of L mandible s/p aspiration of abscess & extraction of tooth POD #0; requiring further monitoring, PICC placement, IV abx & pain management
--- NOTE | 2018-05-26 17:23 | ASMTCMCOM ---
CM Note CM Note Notes: Pt is a 62 y/o female admitted for pain under mandible. Pt is having planned oral surgery for a tooth extraction. Needs are TBD at this time. OT has been ordered and awaiting recommendations. CM to follow. Plan: TBD Date Signed: 05/26/2018 10:42 AM Electronically Signed By:EFRAIN Crespo
[2018-05-26] MEDS: ERTAPENEM 1 GM in NS 100 ML IV SCH (17:42)
--- NOTE | 2018-05-26 18:33 | SOAPPROG ---
SOAP Progress Note Assessment/Plan: s:POD #0 s/p debridement of mandibular osteomyelitis. cc " Holy cow this hurts". Patient with history of chronic pain management with large doses of opioids. Tolerating soft diet, ambulating. PICC line placed today with plan for 3 weeks of IV ABX per Dr. Gilmore with Infectious disease. exam: swelling cw surgery. Still with bilateral v3 anesthesia/numbness from marcaine in surgery. a/p 1) recovering as expected from surgery. 2) planning on DC in AM per hospitalist service 3 Please NOTE that she is still quite numb from her surgery. She is describing pain through the pain meds already given and she is not totally sensate yet. I would anticipate in a few hours she will be in a great deal of pain. I would not hesitate to increase pain meds if needed given her large tolerance to pain meds. 4) patient will follow up with my office in 48 hours ( Thursday of this week) if DC in AM Thank you Juvencio Mckeon DDS 05/26/18 18:26 Objective: Vital Signs Temp Pulse Resp BP Pulse Ox 36.6 C 95 18 123/77 H 90 L 05/26/18 16:00 05/26/18 16:00 05/26/18 16:00 05/26/18 16:00 05/26/18 16:00 Microbiology 05/26/18 08:39 Gram Stain - Final Neck - Swab 05/26/18 08:58 Gram Stain - Final Head - Bone Laboratory Results 05/25/18 14:21 05/25/18 14:21 05/25/18 05/26/18 05/27/18 05:59 05:59 05:59 Intake Total 1210 Output Total 5 Balance 1205 ICD10 Worksheet Patient Problems: Problems Problem Status Onset Acute prerenal azotemia Acute Dehydration Acute Elevated serum creatinine Acute Hypoxia Acute Leg pain, medial Acute Narcotic abuse Acute Volume depletion Acute
--- NOTE | 2018-05-26 19:13 | ASMTCMCOM ---
CM Note KAYLA Note Notes: Spoke w/pt re; dc poc. Needs IV abx for tooth infection, pt waiting for PICC line and wants to go home. CM advised pt PICC, abx, and RN may not be able to get set up before she leaves. Pt is uninterested and states she is not staying and she can come tomorrow to get PICC. I educated patien on the process but she is uninterested and states she is not staying. I discussed other option is to come to outpt infusion but pt also refuses. Per [facility] pt has $25 copay but pt cannot afford. Issue discussed with RN. DC Plan: TBD Date Signed: 05/26/2018 04:16 PM Electronically Signed By:Oksana Gambino RN
[2018-05-26] MEDS ORDERED: HYDROmorphONE/DILAUDID 2 MG/ML INJ IVP ONE (19:45)
[2018-05-26] MEDS ORDERED: oxyCODONE CR 30 MG TAB PO SCH (20:00)
[2018-05-26] MEDS ORDERED: diphenhydrAMINE 25 MG CAP PO PRN (20:27)
[2018-05-26] MEDS: HYDROmorphONE/DILAUDID 2 MG/ML INJ IVP PRN (21:45)
[2018-05-26] MEDS: ACETAMINOPHEN 500 MG TAB PO SCH (21:49)
[2018-05-26] MEDS: PANTOPRAZOLE SODIUM 40 MG TAB PO SCH (21:49)
[2018-05-26] MEDS: CETIRIZINE 10 MG TAB PO SCH (21:50)
[2018-05-26] MEDS: NORTRIPTYLINE HCL 50 MG CAP PO SCH (21:50)
[2018-05-26] MEDS: DOXYLAMINE SUCCINATE 25 MG PO SCH (21:51)
[2018-05-27] MEDS: HYDROmorphONE/DILAUDID 2 MG/ML INJ IVP PRN ×2 (00:18→04:42)
[2018-05-27] MEDS: KETOROLAC 15 MG/1 ML SDV IVP SCH ×2 (00:18→05:55)
[2018-05-27 07:25] VITALS: BP 154/101
[2018-05-27] MEDS: ACETAMINOPHEN 500 MG TAB PO SCH (07:42)
[2018-05-27] MEDS: ERTAPENEM 1 GM in NS 100 ML IV SCH (08:01)
[2018-05-27] MEDS: BACLOFEN 10 MG TAB PO SCH (08:01)
[2018-05-27] MEDS: FAMOTIDINE 20 MG TAB PO SCH (08:01)
[2018-05-27] MEDS: PRESERVISION AREDS2 FORMULA EYE VIT 1 EACH PO SCH (08:01)
[2018-05-27] MEDS: GABAPENTIN 300 MG CAP PO SCH (08:01)
[2018-05-27] MEDS ORDERED: oxyCODONE CR 30 MG TAB PO SCH (09:00)
--- NOTE | 2018-05-27 10:16 | PDDCSUM ---
Discharge Summary Discharge Summary: The patient is a 62 yo female who was admitted for likely OM of left mandible. ID was consulted. She had aspiration and extraction of tooth on 05/26. Operative findings per Dr. Mckeon included necrotic bone in left mandible and small abscess in submental location. G stain shows no organisms with cultures pending. Etiology is most likely odontogenic stormy. Given necrotic bone consistent with osteomyelitis, will need to treat with 6 weeks of IV antibiotics per ID. She has started ertapenem 1 g IV daily and PICC line placed. Patient has a penicillin allergy but has tolerated cephalosporins so reasonable likelihood will also tolerate carbapenem. Home abx infusion were set up. She will f/u with ID in 1-2 weeks She will f/u with Dr. Mckeon tomorrow 05/28. She had acute on chronic pain and required IV Dilaudid in addition to a substantial increase to her home pain regimen while she was hospitalized. On the day of discharge, she was offered to cont hospitalization in light of her high opiate usage and for safety concerns. She refused this and requested discharge. She will be discharged with Dilaudid 2mg, 1-2 tablets orally every 4 hr as needed. A total of 40 pills were provided. Gabapentin was increased to 600mg PO TID. Tylenol and Ibuprofen were scheduled for the next 3 days. No adjustments to her opiate short acting or long acting chronic pain regimen was made. She is to f/u with her pain physician for further mgmt. DDX: #OA of Mandible #Acute on Chronic Pain Syndrome #RA #Sjogren's Syndrome Exam: vss NAD AAOX3 RRR CTA B MEDS: SEE MED REC TOTAL TIME SPENT ON D/C IS 45 MINS INCLUDING COORDINATION WITH CM, NURSING, AND D/W PT.
--- NOTE | 2018-05-27 10:26 | PDIAF ---
- Diagnosis Diagnosis: Osteomyelitis of jaw Code Status: Full Code - Medication Management Discharge Medications: Medications to Continue on Transfer Abatacept [Orencia Clickject] 125 mg INJ TU 07/27/17 [Last Taken 05/18/18] Baclofen [Baclofen 10 mg (*)] 10 mg PO TID 04/08/18 [Last Taken 05/25/18 09:00] Nortriptyline HCl [Pamelor 50 mg (*)] 100 mg PO HS 04/08/18 [Last Taken 05/24/18 ] Ranitidine HCl 300 mg PO HS 04/08/18 [Last Taken 05/24/18] oxyCODONE HCL [Oxycontin] 40 mg PO TID 04/08/18 [Last Taken 05/25/18 09:00] oxyCODONE IR [Oxycodone Ir (*)] 10 mg PO Q4H PRN 04/08/18 [Last Taken Unknown] valACYclovir [Valtrex (*)] 1,000 mg PO DAILY16 04/08/18 [Last Taken 05/24/18] C/E/Zn/Cu/OM3/DHA/EPA/LUT/ZEAX [Preservision Areds 2 Softgel] 1 each PO BID 08/01 [Last Taken 05/25/18] Doxylamine Succinate [Unisom] 25 mg PO HS 05/25/18 [Last Taken 05/24/18] Esomeprazole Magnesium [Nexium] 20 mg PO HS 05/25/18 [Last Taken 05/24/18] Levocetirizine Dihydrochloride [Xyzal] 5 mg PO HS 05/25/18 [Last Taken 05/24/18] [employer]-3 Fatty Acids [Fish Oil 1000 mg (*)] 2,000 mg PO BID 05/25/18 [Last Taken 05/25/18] Pantoprazole Sodium [Protonix 40mg (*)] 40 mg PO HS 05/25/18 [Last Taken ] cycloSPORINE 0.05% [Restasis Opht Drops(*)] 1 drop EACHEYE BID PRN 05/25/18 [ Last Taken Unknown] Ertapenem [INVanz] 1 gm IV DAILY vial 05/27/18 [Last Taken Unknown] Gabapentin [Neurontin 300 MG (*)] 600 mg PO TID #180 cap 05/27/18 [Last Taken Unknown] HYDROmorphone HCL [Dilaudid 2 mg (*)] 2 - 4 mg PO Q4HRS PRN #40 tab 05/27/18 [ Last Taken Unknown] Ibuprofen [Motrin (*)] 600 mg PO Q8H PRN #30 tab 05/27/18 [Last Taken Unknown] Shelter Antibiotics: Ertapenem 1 g IV Q 24 hr [facility] Antibiotic Stop Date: 06/29/18 Discharge Medications: Refer to the Discharge Home Medication list for PRN reason. PICC Care - Routine: Yes - Orders Services needed: Home Alf Care Face to Face: I certify that this patient was under my care and that I had the required [id number]-[id number] encounter meeting the encounter requirements on the discharge day. My findings support the fact that the patient is homebound as defined in Home Care Face to Face Continued: CMS Chapter 7 Medicare Benefits Manual 30.1.1 , The condition of the patient is such that there exists a normal inability to leave home and consequently, leaving home would require a considerable and taxing effort. Isolation Type: None Diet Recommendation: no restrictions on diet Diet Texture: Regular Texture Diet Additional Instructions: Activity: as tolerated Daily abx infusions per Home Health Care Please F/U with Dr. Mckeon on 05/28 as arranged Please F/U with Dr. Manuel Gilmore with Infectious Disease in 1-2 weeks. Please call for appointment Please F/u with your pain medicine Physician for pain management. You have been prescribed additional narcotic pain medication to assist with your pain management. Gabapentin has been increased. Tylenol has been scheduled. Ibuprofen has been scheduled. Please schedule both Tylenol and Ibuprofen for 3 days. After 3 days, these can ge changed to taking them as needed only (not scheduled). - Labs/Radiology CBC w/diff Date: 05/31/18 CMP Date: 05/31/18 Call or Fax Lab and Imaging Results to: Dr. Gilmore, - Follow Up Care Current Providers and Referrals: Brandi Adams MD [Primary Care Provider] -
--- NOTE | 2018-05-27 11:59 | ASMTDCNOTE ---
Case Management Discharge Discharge Order Complete? Answers: Yes Patient to Obtain Answers: Independently Medications Transportation Arranged Answers: Other Notes: pt has her own driver helper Family Notified Answers: No Notes: pt refused Discharge Comments Notes: Pt to discharge home with [facility] RN and [facility] infusion services for IV abx. Referals to agencies updated. Pt states she has past experience with home IV Abx infusion and feels comfortable doing the infusion on her own. Pt declines use of OP Infusion center stating she has not transportation. However, pt also states she has her own driver helper. No further CM needs noted at this time. Date Signed: 05/27/2018 11:51 AM Electronically Signed By:Joanna Woodward
--- NOTE | 2018-05-27 12:17 | ASDISCHSUM ---
Discharge Information Plan Status:Home with Home Health Medically Cleared to Leave:05/27/2018 Discharge Date:05/27/2018 10:28 AM D/C Disposition:Home Health Service [facility]C [facility] Projected Discharge Date:05/27/2018 11:00 AM Transportation at D/C:Taxicab Discharge Delay Reason: Follow-Up Date:05/27/2018 11:00 AM Discharge Slot: Final Diagnosis:Dental Abscess I&D, osteomyelitis Placement Information Referral Type:Home Infusion Referral ID:[id number] Provider Name:[facility] Address 1:[address] Address 2: City:[place] Selection Factors: State:[place] Referral Type:*Home Health Care Services Referral ID:[id number] Provider Name:[facility] Address 1:[address] , [address] Address 2: City:[place] Selection Factors: State:[place] Patient Contact Information Contact Name:EBONY Relationship:Rajesh Address: City: [facility] Phone: State/[facility] Code: Email: Financial Information Financial Class:Medicare Primary Plan Desc:MEDICARE INPATIENT Primary Plan Number:[id number] Secondary Plan Desc:MATTY/RADHA SUPPLEMENT Secondary Plan Number:[id number] Assessment Information [facility] CM Progress Note CM Note CM Note Notes: Pt is a 62 y/o female admitted for pain under mandible. Pt is having planned oral surgery for a tooth extraction. Needs are TBD at this time. OT has been ordered and awaiting recommendations. CM to follow. Plan: TBD Date Signed: 05/26/2018 10:42 AM Electronically Signed By:EFRAIN Crespo [facility] CM Progress Note CM Note CM Note Notes: Spoke w/pt re; dc poc. Needs IV abx for tooth infection, pt waiting for PICC line and wants to go home. CM advised pt PICC, abx, and RN may not be able to get set up before she leaves. Pt is uninterested and states she is not staying and she can come tomorrow to get PICC. I educated patien on the process but she is uninterested and states she is not staying. I discussed other option is to come to outpt infusion but pt also refuses. Per Ct pt has $25 copay but pt cannot afford. Issue discussed with RN. DC Plan: TBD Date Signed: 05/26/2018 04:16 PM Electronically Signed By:Oksana Gambino RN Case Management Discharge Plan Note Case Management Discharge Discharge Order Complete? Answers: Yes Patient to Obtain Answers: Independently Medications Transportation Arranged Answers: Other Notes: pt has her own commercial trailer truck driver Family Notified Answers: No Notes: pt refused Discharge Comments Notes: Pt to discharge home with [facility] RN and [facility] infusion services for IV abx. Referals to agencies updated. Pt states she has past experience with home IV Abx infusion and feels comfortable doing the infusion on her own. Pt declines use of OP Infusion center stating she has not transportation. However, pt also states she has her own commercial trailer truck driver. No further CM needs noted at this time. Date Signed: 05/27/2018 11:51 AM Electronically Signed By:Joanna Woodward Intervention Information Intervention Type:*CANTOR-Signed Date of Service:05/26/2018 12:34 PM Patient Type:Observation Staff Member:Bree Ratliff Hours: Discipline: Severity: Comment:
== END 2018-05-27 10:28 | disposition home health service (06) | DRG 158 ==
LOC: F3E 12:51 → EDSTATUS 05-26 08:15 → OBSVTOIN 05-26 16:43
PROVIDERS: ADMIT Internal Medicine; ATTEND Internal Medicine
PROC: 0C9 Mouth and Throat, Drainage (ICD-10-PCS; principal; 2018-05-26 08:15)
PROC: 0CDXXZ0 Extraction of Lower Tooth, Single, External Approach (ICD-10-PCS; principal; 2018-05-26 08:15)
PROC: 02HV33Z Insertion of Infusion Device into Superior Vena Cava, Percutaneous Approach (ICD-10-PCS; 2018-05-27)
DX: M27.2 Inflammatory conditions of jaws (principal); K12.2 Cellulitis and abscess of mouth; F11.20 Opioid dependence, uncomplicated; G89.29 Other chronic pain; M06.9 Rheumatoid arthritis, unspecified; M35.00 Sjogren syndrome, unspecified; M81.0 Age-related osteoporosis without current pathological fracture; F60.9 Personality disorder, unspecified; K21.9 Gastro-esophageal reflux disease without esophagitis
CPT/HCPCS: C1751; G0378; J1100; J1170; J1335; J1885; J2250; J2370; J2405; J2704; J3010

== ENCOUNTER → 2018-07-16 | Outpatient (CLI) | payer OTHER, MEDICARE | LOC: BMCIMAGING 14:12 | PROVIDERS: ATTEND Physician Assistant | DX: M25.551 Pain in right hip (principal); M25.552 Pain in left hip; M47.818 Spondylosis without myelopathy or radiculopathy, sacral and sacrococcygeal region ==

== ENCOUNTER 2018-08-03 08:50 | Day surgery (SDC) | payer OTHER, MEDICARE ==
--- NOTE | 2018-08-03 09:39 | PDANEPAE ---
ANE History of Present Illness 62 yo with dysphasia ANE Past Medical History - Cardiovascular History Hx Hypertension: No Hx Arrhythmias: No Hx Chest Pain: No Hx Coronary Artery / Peripheral Vascular Disease: No Hx CHF / Valvular Disease: No Hx Palpitations: No - Pulmonary History Hx COPD: No Hx Asthma/Reactive Airway Disease: No Hx Recent Upper Respiratory Infection: No Hx Oxygen in Use at Home: No Hx Sleep Apnea: No Sleep Apnea Screening Result - Last Documented: Negative Pulmonary History Comment: HX OF RESPIRATORY FAILURE W/ HYPOXEMIA - Neurologic History Hx Cerebrovascular Accident: No Hx Seizures: No Hx Dementia: No Neurologic History Comment: patient reports "martin had like 30 concussions" - Endocrine History Hx Diabetes: No Hypothyroid: No Hyperthyroid: No Obesity: no - Renal History Hx Renal Disorders: No - Liver History Hx Hepatic Disorders: No - Neurological & Psychiatric Hx Hx Neurological and Psychiatric Disorders: Yes Neurological / Psychiatric History Comment: PERIPHERAL NEUROPATHY - Cancer History Hx Cancer: No - Congenital Disorder History Hx Congenital Disorders: No - GI History GERD: no Hx Gastrointestinal Disorders: Yes Gastrointestinal History Comment: GERD - Other Health History Other Health History: SJOGREN'S,. RHEUMATOID ARTHRITIS, OSTEOARTHRITIS, OSTEOPOROSIS, DEGENERATIVE DISK DISEASE, CHRONIC PAIN SYNDROME - Chronic Pain History Chronic Pain: Yes - Surgical History Prior Surgeries: L5-S1 LAMINECTOMY, two titanium rods in backand 8 bolts, hysterectomy, both right and left, ROTATOR CUFF REPAIR, LUMBAR EPIDURAL STEROID INJECTION, "facial surgery", COLONOSCOPY ANE Review of Systems Review of systems is: negative Review of Systems: - Exercise capacity METS (RN): 3 METS ANE Patient History - Allergies Allergies/Adverse Reactions: Penicillins Allergy (Severe, Verified 05/05/18 02:25) Anaphylaxis/TROUBLE BREATHING CATS Allergy (Severe, Uncoded 05/05/18 02:25) TROUBLE BREATHING DONNIE NUTS Allergy (Severe, Uncoded 05/05/18 02:25) TROUBLE BREATHING ENVIRONMENTAL Allergy (Uncoded 05/05/18 02:25) Other-Enter Comments - Home Medications Home medications: home medication list seen and reviewed Home Medications: Baclofen [Baclofen 10 mg (*)] 10 mg PO TID 04/08/18 [Last Taken 05/25/18 09:00] Nortriptyline HCl [Pamelor 50 mg (*)] 100 mg PO HS 04/08/18 [Last Taken 05/24/18 ] Ranitidine HCl 300 mg PO HS 04/08/18 [Last Taken 05/24/18] oxyCODONE HCL [Oxycontin] 40 mg PO TID 04/08/18 [Last Taken 05/25/18 09:00] oxyCODONE IR [Oxycodone Ir (*)] 10 mg PO Q4H PRN 04/08/18 [Last Taken Unknown] valACYclovir [Valtrex (*)] 1,000 mg PO DAILY16 04/08/18 [Last Taken 05/24/18] C/E/Zn/Cu/OM3/DHA/EPA/LUT/ZEAX [Preservision Areds 2 Softgel] 1 each PO BID 08/01 [Last Taken 05/25/18] Doxylamine Succinate [Unisom] 25 mg PO HS 05/25/18 [Last Taken 05/24/18] Esomeprazole Magnesium [Nexium] 20 mg PO HS 05/25/18 [Last Taken 05/24/18] Levocetirizine Dihydrochloride [Xyzal] 5 mg PO HS 05/25/18 [Last Taken 05/24/18] [place]-3 Fatty Acids [Fish Oil 1000 mg (*)] 2,000 mg PO BID 05/25/18 [Last Taken 05/25/18] Pantoprazole Sodium [Protonix 40mg (*)] 40 mg PO HS 05/25/18 [Last Taken ] cycloSPORINE 0.05% [Restasis Opht Drops(*)] 1 drop EACHEYE BID PRN 05/25/18 [ Last Taken Unknown] Micafungin Na IV DAILY 07/29/18 [Last Taken Unknown] - NPO status NPO Status: no food or drink >8 hours - Anes Hx Anes Hx: no prior problems - Smoking Hx Smoking Status: Former smoker Marijuana use: No - Alcohol Use Alcohol Use: None - Family Anes Hx Family Anes Hx: none Family Hx Anesthesia Complications: NONE ANE Labs/Vital Signs - Vital Signs Height: 162.56 cm Weight: 50.802 kg ANE Physical Exam - Airway Neck exam: FROM Mallampati Score: Class 2 Mouth exam: normal dental/mouth exam - Pulmonary Pulmonary: no respiratory distress, clear to auscultation - Cardiovascular Cardiovascular: regular rate and rhythym, no murmur, rub, or gallop - ASA Status ASA Status: II ANE Anesthesia Plan Anesthesia Plan: GA with mask, MAC
--- NOTE | 2018-08-03 09:54 | PDANEPAE ---
ANE History of Present Illness 62 yo for egd ANE Past Medical History - Cardiovascular History Hx Hypertension: No Hx Arrhythmias: No Hx Chest Pain: No Hx Coronary Artery / Peripheral Vascular Disease: No Hx CHF / Valvular Disease: No Hx Palpitations: No - Pulmonary History Hx COPD: No Hx Asthma/Reactive Airway Disease: No Hx Recent Upper Respiratory Infection: No Hx Oxygen in Use at Home: No Hx Sleep Apnea: No Sleep Apnea Screening Result - Last Documented: Negative Pulmonary History Comment: HX OF RESPIRATORY FAILURE W/ HYPOXEMIA - Neurologic History Hx Cerebrovascular Accident: No Hx Seizures: No Hx Dementia: No Neurologic History Comment: patient reports "martin had like 30 concussions" - Endocrine History Hx Diabetes: No Hypothyroid: No Hyperthyroid: No Obesity: no - Renal History Hx Renal Disorders: No - Liver History Hx Hepatic Disorders: No - Neurological & Psychiatric Hx Hx Neurological and Psychiatric Disorders: Yes Neurological / Psychiatric History Comment: PERIPHERAL NEUROPATHY - Cancer History Hx Cancer: No - Congenital Disorder History Hx Congenital Disorders: No - GI History GERD: no Hx Gastrointestinal Disorders: Yes Gastrointestinal History Comment: GERD - Other Health History Other Health History: SJOGREN'S,. RHEUMATOID ARTHRITIS, OSTEOARTHRITIS, OSTEOPOROSIS, DEGENERATIVE DISK DISEASE, CHRONIC PAIN SYNDROME - Chronic Pain History Chronic Pain: Yes - Surgical History Prior Surgeries: L5-S1 LAMINECTOMY, two titanium rods in backand 8 bolts, hysterectomy, both right and left, ROTATOR CUFF REPAIR, LUMBAR EPIDURAL STEROID INJECTION, "facial surgery", COLONOSCOPY ANE Review of Systems Review of Systems: - Exercise capacity METS (RN): 3 METS ANE Patient History - Allergies Allergies/Adverse Reactions: Penicillins Allergy (Severe, Verified 05/05/18 02:25) Anaphylaxis/TROUBLE BREATHING CATS Allergy (Severe, Uncoded 05/05/18 02:25) TROUBLE BREATHING DONNIE NUTS Allergy (Severe, Uncoded 05/05/18 02:25) TROUBLE BREATHING ENVIRONMENTAL Allergy (Uncoded 05/05/18 02:25) Other-Enter Comments - Home Medications Home Medications: Baclofen [Baclofen 10 mg (*)] 10 mg PO TID 04/08/18 [Last Taken 05/25/18 09:00] Nortriptyline HCl [Pamelor 50 mg (*)] 100 mg PO HS 04/08/18 [Last Taken 05/24/18 ] Ranitidine HCl 300 mg PO HS 04/08/18 [Last Taken 05/24/18] oxyCODONE HCL [Oxycontin] 40 mg PO TID 04/08/18 [Last Taken 05/25/18 09:00] oxyCODONE IR [Oxycodone Ir (*)] 10 mg PO Q4H PRN 04/08/18 [Last Taken Unknown] valACYclovir [Valtrex (*)] 1,000 mg PO DAILY16 04/08/18 [Last Taken 05/24/18] C/E/Zn/Cu/OM3/DHA/EPA/LUT/ZEAX [Preservision Areds 2 Softgel] 1 each PO BID 08/01 [Last Taken 05/25/18] Doxylamine Succinate [Unisom] 25 mg PO HS 05/25/18 [Last Taken 05/24/18] Esomeprazole Magnesium [Nexium] 20 mg PO HS 05/25/18 [Last Taken 05/24/18] Levocetirizine Dihydrochloride [Xyzal] 5 mg PO HS 05/25/18 [Last Taken 05/24/18] [place]-3 Fatty Acids [Fish Oil 1000 mg (*)] 2,000 mg PO BID 05/25/18 [Last Taken 05/25/18] Pantoprazole Sodium [Protonix 40mg (*)] 40 mg PO HS 05/25/18 [Last Taken ] cycloSPORINE 0.05% [Restasis Opht Drops(*)] 1 drop EACHEYE BID PRN 05/25/18 [ Last Taken Unknown] Micafungin Na IV DAILY 07/29/18 [Last Taken Unknown] - NPO status NPO Since - Liquids (Date): 08/03/18 NPO Since - Liquids (Time): 07:30 NPO Since - Solids (Date): 08/02/18 NPO Since - Solids (Time): 20:00 - Smoking Hx Smoking Status: Former smoker - Alcohol Use Alcohol Use: None - Family Anes Hx Family Hx Anesthesia Complications: NONE ANE Labs/Vital Signs - Vital Signs Blood Pressure: 154/98 Heart Rate: 82 Respiratory Rate: 18 O2 Sat (%): 94 Height: 5 ft 4 in Weight: 50.802 kg ANE Physical Exam - Airway Neck exam: decreased ROM Mallampati Score: Class 2 Mouth exam: normal dental/mouth exam - Pulmonary Pulmonary: no respiratory distress - Cardiovascular Cardiovascular: regular rate and rhythym - ASA Status ASA Status: III ANE Anesthesia Plan Anesthesia Plan: GA with mask, MAC Total IV Anesthesia: Yes
[2018-08-03] MEDS ORDERED: LR 1,000 ML IV ONE (09:55)
[2018-08-03] MEDS ORDERED: PROPOFOL/EMULSION 500 MG/50 ML BOTTLE IV ONE (10:13)
--- NOTE | 2018-08-03 10:20 | PDGENHP ---
History & Physical Chief Complaint: dysphagia History of Present Illness: dysphagia query motility vs anatomic. hx gerd Pertinent Past, Social, Family History: no tobacco few years, long hx. alcohol 2-7 times per week occ none for weeks. fhx - adopted Relevant Physical Exam: A+Ox3. CTA. S1S2. +BS, soft Cardiorespiratory Assessment: class 3
[2018-08-03] MEDS ORDERED: NALOXONE HCL 0.4 MG/ML INJ IVP PRN (10:49)
--- NOTE | 2018-08-03 11:04 | GIREPORT ---
[facility] - Endoscopy Department Patient Name: Tabitha Stephenson Procedure Date: 08/03/2018 10:18 AM Patient Type: Outpatient Attending MD/ ER Physician: Skylar Al Procedure: Upper GI endoscopy Indications: Dysphagia Providers: Leighton Izquierdo MD Referring MD: Brandi Adams MD Medicines: Propofol per Anesthesia = Iv general w/o airway Complications: No immediate complications. Estimated blood loss: Minimal. Description of Procedure: After obtaining informed consent, the endoscope was passed under direct vision. Throughout the procedure, the patient's blood pressure, pulse, and oxygen saturations were monitored continuously. The Endoscope was intro duced through the mouth, and advanced to the second part of duodenum. The up er GI endoscopy was accomplished without difficulty. The patient tolerated th e procedure well. Findings: The examined esophagus was normal. Biopsies were obtained from the prox imal and distal esophagus with cold forceps for histology of suspected eosinophilic esophagitis. Estimated blood loss was minimal. One benign-appearing, intrinsic stenosis was found at the cricopharynge us. This stenosis was mildly severe and measured less than one cm (in lengt h). The stenosis was traversed. A guidewire was placed and the scope was withdrawn. Dilation was performed with a Savary dilator with no resista nce at 60 Fr. The dilation site was examined following endoscope reinsertio n and showed mild improvement in luminal narrowing. Estimated blood loss was minimal. Diffuse moderate inflammation characterized by erythema, friability and granularity was found in the entire examined stomach. Biopsies were baldev en with a cold forceps for histology. Estimated blood loss was minimal. The examined duodenum was normal. The exam was otherwise without abnormality. Estimated Blood Loss: Estimated blood loss was minimal. Post Op Diagnosis: - Normal esophagus. Biopsied. - Benign-appearing esophageal stenosis. Dilated. Upper esophageal sphin cter. Unclear if this will resolve her symptoms as her symptoms maybe related to a motility disorder. - Gastritis. Biopsied. - Normal examined duodenum. - The examination was otherwise normal. Recommendation: - Await pathology results. - My office will call with the pathology result with 5-7 days. If you h ave not heard from my office by 12-14, do not assume the pathology is pepe l, please call [phone] to get the pathology results. - If biopsy are consistent with Eosinophilic Esophagitis (EoE), then re geovanni to data software engineer and consider swallowed not inhaled fluticasone prn. - Resume previous diet. - Return to GI clinic in 6 weeks. - Return to primary care physician as previously scheduled. - Discharge patient to home (ambulatory). - Thank you for allowing me to help in your patient's care. Do not hesi cox to call with any questions. Attending Participation: I personally performed the entire procedure. Timbo Fletcher M.D Chance Izquierdo MD 08/03/2018 11:03:31 AM This report has been signed electronicallyMathejorge Izquierdo MD Number of Addenda: 0 Note Initiated On: 08/03/2018 10:18 AM [email or web address]
[2018-08-03 11:43] VITALS: BP 120/89
--- NOTE | 2018-08-03 11:55 | POSTANESTH ---
Post Anesthetic Evaluation Cardiovascular Status: Normal, Stable Respiratory Status: Normal, Stable Level of Consciousness/Mental Status: Can Participate in Eval Pain Control: Adequate, Prn Tx Ordered Nausea/Vomiting Control: Adequate, Prn Tx Ordered Complications Possibly Related to Anesthesia: None Noted
== END 2018-08-03 11:44 | disposition home or self-care (01) ==
LOC: FSGY 08:50
PROVIDERS: ATTEND Internal Medicine Gastroenterology
PROC: 0DB18ZX Excision of Upper Esophagus, Via Natural or Artificial Opening Endoscopic, Diagnostic (ICD-10-PCS; 2018-08-03)
PROC: 0DB38ZX Excision of Lower Esophagus, Via Natural or Artificial Opening Endoscopic, Diagnostic (ICD-10-PCS; 2018-08-03)
PROC: 0DB68ZX Excision of Stomach, Via Natural or Artificial Opening Endoscopic, Diagnostic (ICD-10-PCS; 2018-08-03)
PROC: 0D718ZZ Dilation of Upper Esophagus, Via Natural or Artificial Opening Endoscopic (ICD-10-PCS; principal; 2018-08-03 10:15)
DX: K20.0 Eosinophilic esophagitis (principal); K22.2 Esophageal obstruction; K29.70 Gastritis, unspecified, without bleeding; Z87.891 Personal history of nicotine dependence
CPT/HCPCS: J1642; J2704

== ENCOUNTER 2018-11-11 16:12 | Emergency (ER) | payer OTHER, MEDICARE ==
--- NOTE | 2018-11-11 17:21 | EDPHY ---
H & P Time Seen by Provider: 11/11/18 17:20 HPI/ROS: CHIEF COMPLAINT: Dizzy lightheaded low blood pressure HISTORY OF PRESENT ILLNESS: Patient is had decreased oral intake for the last couple of days. Today she only had water and a few wheat thins crackers. She says she feels dizzy and lightheaded like she has trouble getting her breath when she stands up. Symptoms are mild to moderate and sent by her primary care physician's office for orthostatic hypotension. No rectal bleeding or melena. No chest pain or shortness of breath at rest. No coughing or hemoptysis or leg swelling. No vomiting or diarrhea. REVIEW OF SYSTEMS: Eye: no change in vision ENT: no sore throat Cardiac: no chest pain or syncope Pulmonary: no cough or SOB Abdomen: no vomiting, diarrhea, abdominal pain Musculoskeletal: no back pain Skin: no rash Neuro: no headache Constitutional: no fever : no urinary symptoms A comprehensive 10 point review of systems is otherwise negative aside from elements mentioned in the history of present illness. PAST MEDICAL HISTORY: Includes rheumatoid arthritis, Sjogren's syndrome, alcohol, chronic pain Social history: Former smoker, Dr. Adams patient. General Appearance: Alert and conversant, cooperative. Eyes: No scleral icterus. ENT, Mouth: Dry mucous membranes. Respiratory: Normal respiratory effort, breath sounds equal, lungs are clear to auscultation. Cardiovascular: Regular rate and rhythm. Gastrointestinal: Abdomen is soft and non tender. Neurological: Alert, face symmetric, normal motor and sensory in extremities. Fluent speech and ambulatory. Skin: Warm and dry, no rashes. Musculoskeletal: No peripheral edema. Psychiatric: Not agitated. Emergency Department course/MDM: Triage blood pressure is 89/66 with a heart rate of 107. EKG shows sinus rhythm. IV normal fluids and electrolytes ordered. 1832: Chronic pain patient wants her usual oxycodone 20 mg and Advil which I think is reasonable. After IV fluids blood pressure up to 132 systolic with heart rate less than 100. More likely to be dehydration with decreased oral intake resulting in orthostatic hypotension. I think ACS or myocardial infarction or other metabolic abnormality is unlikely. She has a slightly elevated creatinine of 1.3 which would go along with this diagnosis, but she received IV hydration in the ED and is not vomiting I think it is appropriate to discharge her which is what the patient wants and I think it is reasonable. She is warned to increase her oral fluid intake. Smoking Status: Former smoker Constitutional: Initial Vital Signs Temperature (C) 36.7 C 11/11/18 16:33 Heart Rate 107 H 11/11/18 16:33 Respiratory Rate 16 11/11/18 16:33 Blood Pressure 89/66 L 11/11/18 16:33 O2 Sat (%) 96 11/11/18 16:33 O2 Delivery Mode Room Air Allergies/Adverse Reactions: Penicillins Allergy (Severe, Verified 05/05/18 02:25) Anaphylaxis/TROUBLE BREATHING CATS Allergy (Severe, Uncoded 05/05/18 02:25) TROUBLE BREATHING DONNIE NUTS Allergy (Severe, Uncoded 05/05/18 02:25) TROUBLE BREATHING ENVIRONMENTAL Allergy (Uncoded 05/05/18 02:25) Other-Enter Comments Home Medications: Medication Instructions Recorded Baclofen [Baclofen 10 mg (*)] 10 mg PO TID 04/08/18 Nortriptyline HCl [Pamelor 50 mg 100 mg PO HS 04/08/18 (*)] Ranitidine HCl 300 mg PO HS 04/08/18 oxyCODONE HCL [Oxycontin] 40 mg PO TID 04/08/18 oxyCODONE IR [Oxycodone Ir (*)] 10 mg PO Q4H PRN 04/08/18 valACYclovir [Valtrex (*)] 1,000 mg PO DAILY16 04/08/18 C/E/Zn/Cu/OM3/DHA/EPA/LUT/ZEAX 1 each PO BID 05/25/18 [Preservision Areds 2 Softgel] Doxylamine Succinate [Unisom] 25 mg PO HS 05/25/18 Esomeprazole Magnesium [Nexium] 20 mg PO HS 05/25/18 Levocetirizine Dihydrochloride 5 mg PO HS 05/25/18 [Xyzal] [place]-3 Fatty Acids [Fish Oil 1000 2,000 mg PO BID 05/25/18 mg (*)] Pantoprazole Sodium [Protonix 40mg 40 mg PO HS 05/25/18 (*)] cycloSPORINE 0.05% [Restasis Opht 1 drop EACHEYE BID PRN 05/25/18 Drops(*)] Ertapenem [INVanz] 1 gm IV DAILY vial 05/27/18 Gabapentin [Neurontin 300 MG (*)] 600 mg PO TID #180 cap 05/27/18 Ibuprofen [Motrin (*)] 600 mg PO Q8H PRN #30 tab 05/27/18 Micafungin Na IV DAILY 07/29/18 Oxycontin 11/11/18 Medical Decision Making - Diagnostics EKG Interpretation: 12-lead EKG interpreted by me; official reading is in computer system. My interpretation is sinus rhythm with LVH with borderline anterior T-wave abnormalities. - Data Points Laboratory Results: Laboratory Results 11/11/18 17:20 11/11/18 17:20 11/11/18 11/11/18 11/11/18 18:28 17:20 17:20 WBC 7.08 10^3/uL 10^3/uL (3.80-9.50) RBC 4.24 10^6/uL 10^6/uL (4.18-5.33) Hgb 13.7 g/dL g/dL (12.6-16.3) Hct 42.2 % % (38.0-47.0) MCV 99.5 fL fL (81.5-99.8) MCH 32.3 pg pg (27.9-34.1) MCHC 32.5 g/dL g/dL (32.4-36.7) RDW 13.4 % % (11.5-15.2) Plt Count 286 10^3/uL 10^3/uL (150-400) MPV 8.9 fL fL (8.7-11.7) Neut % (Auto) 62.4 % % (39.3-74.2) Lymph % (Auto) 25.8 % % (15.0-45.0) [place] % (Auto) 7.8 % % (4.5-13.0) Eos % (Auto) 3.4 % % (0.6-7.6) Baso % (Auto) 0.3 % % (0.3-1.7) Nucleat RBC Rel Count 0.0 % % (0.0-0.2) Absolute Neuts (auto) 4.42 10^3/uL 10^3/uL (1.70-6.50) Absolute Lymphs (auto) 1.83 10^3/uL 10^3/uL (1.00-3.00) Absolute Monos (auto) 0.55 10^3/uL 10^3/uL (0.30-0.80) Absolute Eos (auto) 0.24 10^3/uL 10^3/uL (0.03-0.40) Absolute Basos (auto) 0.02 10^3/uL 10^3/uL (0.02-0.10) Absolute Nucleated RBC 0.00 10^3/uL 10^3/uL (0-0.01) Immature Gran % 0.3 % % (0.0-1.1) Immature Gran # 0.02 10^3/uL 10^3/uL (0.00-0.10) Sodium 135 mEq/L mEq/L (135-145) Potassium 4.2 mEq/L mEq/L (3.5-5.2) Chloride 99 mEq/L mEq/L (97-110) Carbon Dioxide 27 mEq/l mEq/l (22-31) Anion Gap 9 mEq/L mEq/L (6-14) BUN 23 mg/dL mg/dL (7-23) Creatinine 1.3 mg/dL H mg/dL (0.6-1.0) Estimated GFR 42 Glucose 91 mg/dL mg/dL (70-100) Calcium 9.1 mg/dL mg/dL (8.5-10.4) POC Troponin I 0.01 ng/mL ng/mL (0.00-0.08) Medications Given: Discontinued Medications Sodium Chloride (Ns) 1,000 mls @ 0 mls/hr IV EDNOW ONE; Wide Open PRN Reason: Protocol Stop: 11/11/18 17:38 Last Admin: 11/11/18 17:38 Dose: 1,000 mls Sodium Chloride (Ns) 1,000 mls @ 0 mls/hr IV EDNOW ONE; Wide Open PRN Reason: Protocol Stop: 11/11/18 18:19 Last Admin: 11/11/18 18:26 Dose: 1,000 mls Oxycodone HCl (Oxycodone Ir) 20 mg PO EDNOW ONE Stop: 11/11/18 18:33 Last Admin: 11/11/18 18:39 Dose: 20 mg Point of Care Test Results: Chemistry 11/11/18 18:28 POC Troponin I 0.01 ng/mL ng/mL (0.00-0.08) Departure - Departure Disposition: Home, Routine, Self-Care Clinical Impression: Dehydration, Orthostatic hypotension Condition: Good Instructions: Dehydration (ED), Hypotension (ED) Referrals: Brandi Adams MD [Primary Care Provider] - As per Instructions
[2018-11-11] MEDS ORDERED: NS 1,000 ML IV ONE ×2 (17:37→18:18)
[2018-11-11 17:47] LABS: PLATELET COUNT 286 10^3/uL (150-400)
--- NOTE | 2018-11-11 18:22 | CPEKG ---
Test Reason : OPEN Blood Pressure : / mmHG Vent. Rate : 095 BPM Atrial Rate : 096 BPM P-R Int : 189 ms QRS Dur : 101 ms QT Int : 354 ms P-R-T Axes : 026 -32 045 degrees QTc Int : 445 ms Sinus rhythm Left ventricular hypertrophy Borderline T abnormalities, anterior leads Confirmed by Georgina Arteaga ([id number]) on 11/11/2018 6:22:08 PM Referred By: GEORGINA ARTEAGA Confirmed By:Georgina Arteaga
[2018-11-11] MEDS ORDERED: oxyCODONE IR 5 MG TAB PO ONE (18:32)
[2018-11-11] MEDS ORDERED: IBUPROFEN 600 MG TAB PO ONE (18:33)
[2018-11-11 19:48] VITALS: BP 132/94
== END 2018-11-11 19:56 | disposition home or self-care (01) ==
DX: E86.0 Dehydration (principal); I95.9 Hypotension, unspecified
CPT/HCPCS: 84484-ER

== ENCOUNTER → 2019-01-18 | Outpatient (CLI) | payer OTHER, MEDICARE | LOC: BMCIMAGING 13:41 | PROVIDERS: ATTEND Physician Assistant Surgical | DX: M47.12 Other spondylosis with myelopathy, cervical region (principal); Z98.1 Arthrodesis status ==